=== PATIENT | female | born 1940 | race Caucasian/White ===

== ENCOUNTER 2017-08-03 21:25 | Emergency (ER) | payer MEDICARE, OTHER ==
[~2017-08-03] VITALS: Ht 154.9 cm; Wt 90.7 kg
[~2017-08-03 21:25] MED LIST: ASPI81CH PO; ASPI81EC; CETI5 PO; CITA20 PO; METO50ER PO; OMEP20ER PO; Prilosec20 MG PO; SIMV40 PO; TRIA80TC; Tylenol With C1 EACH PO
[2017-08-03] MEDS ORDERED: OXYB5 PO (21:36)
[2017-08-03] MEDS ORDERED: BUSP5 PO (21:38)
[2017-08-03] MEDS ORDERED: ESTR2 PO (21:38)
[2017-08-03 22:16] LABS: BASOPHILS ABSOLUTE AUTO 0.07 K/mm3 (0.00-0.23); BASOPHILS PERCENT AUTO 1 % (0-2); EOSINOPHILS ABSOLUTE AUTO 0.24 K/mm3 (0.00-0.68); EOSINOPHILS PERCENT AUTO 4 % (0-6); Hematocrit 40.5 % (33.0-51.0); Hemoglobin 13.4 g/dL (11.5-16.0); IMMATURE GRAN ABSOLUTE AUTO 0.04 K/mm3 (0.00-0.10); IMMATURE GRAN PERCENT AUTO 1 % (0-1); LYMPHOCYTES ABSOLUTE AUTO 2.36 K/mm3 (0.84-5.20); LYMPHOCYTES PERCENT AUTO 35 % (21-46); MONOCYTES ABSOLUTE AUTO 0.55 K/mm3 (0.16-1.47); MONOCYTES PERCENT AUTO 8 % (4-13); Mean Corpuscular HGB 31.8 pg (26.0-34.0); Mean Corpuscular HGB Conc 33.1 g/dL (31.5-36.5); Mean Corpuscular Volume 96 fL (80-100); Mean Platelet Volume 9.7 fL (9.1-12.4); NEUTROPHILS ABSOLUTE AUTO 3.44 K/mm3 (1.96-9.15); NEUTROPHILS PERCENT AUTO 51 % (41-73); Platelet Count 259 K/mm3 (150-400); RDW Coefficient Variation 12.2 % (11.7-14.2); RDW Standard Deviation 43.1 fL (35.1-46.3); Red Blood Cell Count 4.22 M/mm3 (3.80-5.20)
[2017-08-03 22:30] LABS: Alanine Aminotransfer (ALT/SGP 30 U/L (12-78); Albumin, Blood 3.5 g/dL (3.4-5.0); Albumin/Globulin Ratio 0.8 (0.8-1.8); Alk Phos 75 U/L (50-136); Anion Gap 9 mmol/L (6-16); Aspartate Aminotrans (AST/SGOT 29 U/L (12-37); Bilirubin, Total 0.2 mg/dL (0.1-1.0); Blood Urea Nitrogen 14 mg/dL (8-24); Bun/Creatinine Ratio 20.6 (12.0-20.0); CO2, Blood 28 mmol/L (21-32); Calcium, Blood 8.7 mg/dL (8.5-10.1); Chloride, Blood 102 mmol/L (98-108); Creatinine, Blood 0.68 mg/dL (0.40-1.00); Globulin, Blood 4.3 g/dL (2.2-4.0); Glomerular Filtration Rate >60 (60-); Glucose, Blood 95 mg/dL (70-99); Potassium, Blood 3.6 mmol/L (3.5-5.5); Sodium, Blood 139 mmol/L (136-145); Total Protein, Blood 7.8 g/dL (6.4-8.2); Troponin I <0.015 ng/mL (0.000-0.040)
[2018-02-17] MEDS ORDERED: WATER PILL PO (14:38)
[2018-02-17] MEDS ORDERED: CHLO25B PO (16:27)
== END 2017-08-04 02:01 | disposition home or self-care (01) ==
LOC: ER 21:25
PROVIDERS: Emergency Medicine
DX: R07.89 Other chest pain (principal); Z88.2 Allergy status to sulfonamides; Z79.899 Other long term (current) drug therapy; Z79.82 Long term (current) use of aspirin; I10 Essential (primary) hypertension; Z87.891 Personal history of nicotine dependence
CPT/HCPCS: 71046; 80053; 84484; 85025; 93005; 93010; 99284

== ENCOUNTER 2017-09-14 23:18 | Emergency (ER) | payer MEDICARE, OTHER ==
[~2017-09-14] VITALS: Ht 154.9 cm; Wt 88.0 kg
[~2017-09-14 23:18] MED LIST changes: +BUSP5 PO; +ESTR2 PO; +OXYB5 PO
[2017-09-14] MEDS ORDERED: LOSA25 PO (23:34)
[2017-09-14 23:39] LABS: BASOPHILS ABSOLUTE AUTO 0.05 K/mm3 (0.00-0.23); BASOPHILS PERCENT AUTO 1 % (0-2); EOSINOPHILS ABSOLUTE AUTO 0.17 K/mm3 (0.00-0.68); EOSINOPHILS PERCENT AUTO 2 % (0-6); Hematocrit 39.6 % (33.0-51.0); Hemoglobin 13.4 g/dL (11.5-16.0); IMMATURE GRAN ABSOLUTE AUTO 0.04 K/mm3 (0.00-0.10); IMMATURE GRAN PERCENT AUTO 1 % (0-1); LYMPHOCYTES ABSOLUTE AUTO 2.32 K/mm3 (0.84-5.20); LYMPHOCYTES PERCENT AUTO 30 % (21-46); MONOCYTES ABSOLUTE AUTO 0.58 K/mm3 (0.16-1.47); MONOCYTES PERCENT AUTO 8 % (4-13); Mean Corpuscular HGB 31.9 pg (26.0-34.0); Mean Corpuscular HGB Conc 33.8 g/dL (31.5-36.5); Mean Corpuscular Volume 94 fL (80-100); Mean Platelet Volume 9.6 fL (9.1-12.4); NEUTROPHILS ABSOLUTE AUTO 4.56 K/mm3 (1.96-9.15); NEUTROPHILS PERCENT AUTO 59 % (41-73); Platelet Count 241 K/mm3 (150-400); RDW Coefficient Variation 12.2 % (11.7-14.2); RDW Standard Deviation 42.4 fL (35.1-46.3); White Blood Cell Count 7.72 K/mm3 (4.00-11.30)
[2017-09-15] LABS: Alanine Aminotransfer (ALT/SGP 34 U/L (12-78); Albumin, Blood 3.5 g/dL (3.4-5.0); Albumin/Globulin Ratio 0.9 (0.8-1.8); Alk Phos 80 U/L (50-136); Anion Gap 7 mmol/L (6-16); Aspartate Aminotrans (AST/SGOT 37 U/L (12-37); Bilirubin, Total 0.3 mg/dL (0.1-1.0); Blood Urea Nitrogen 17 mg/dL (8-24); Bun/Creatinine Ratio 24.2 (12.0-20.0); CO2, Blood 25 mmol/L (21-32); Chloride, Blood 105 mmol/L (98-108); Globulin, Blood 3.9 g/dL (2.2-4.0); Glomerular Filtration Rate >60 (60-); Glucose, Blood 100 mg/dL (70-99); Potassium, Blood 3.7 mmol/L (3.5-5.5); Sodium, Blood 137 mmol/L (136-145); Total Protein, Blood 7.4 g/dL (6.4-8.2); Troponin I <0.015 ng/mL (0.000-0.040)
[2018-02-17] MEDS ORDERED: WATER PILL PO (14:38)
[2018-02-17] MEDS ORDERED: CHLO25B PO (16:27)
== END 2017-09-15 00:15 | disposition home or self-care (01) ==
LOC: ER 23:18
PROVIDERS: Emergency Medicine
DX: R07.9 Chest pain, unspecified (principal); Z88.2 Allergy status to sulfonamides; Z79.899 Other long term (current) drug therapy; Z79.82 Long term (current) use of aspirin; I10 Essential (primary) hypertension; Z87.891 Personal history of nicotine dependence
CPT/HCPCS: 80053; 83690; 83880; 84484; 85025; 93005; 93010; 99283

== ENCOUNTER 2018-01-17 19:35 | Emergency (ER) | payer MEDICARE, OTHER ==
[~2018-01-17] VITALS: Ht 157.5 cm; Wt 88.5 kg
[~2018-01-17 19:35] MED LIST changes: +LOSA25 PO
[2018-01-17] MEDS ORDERED: HYDR1TAB94 PO (19:50)
== END 2018-01-17 23:54 | disposition left against medical advice (07) ==
LOC: ER 19:35
DX: Z53.21 Procedure and treatment not carried out due to patient leaving prior to being seen by health care provider (principal)

== ENCOUNTER → 2018-01-28 | Outpatient (CLI) | payer MEDICARE, OTHER ==
[~2018-01-28] MED LIST changes: +HYDR1TAB94 PO
[2018-01-28 13:31] LABS: BASOPHILS ABSOLUTE AUTO 0.03 K/mm3 (0.00-0.23); BASOPHILS PERCENT AUTO 1 % (0-2); EOSINOPHILS ABSOLUTE AUTO 0.11 K/mm3 (0.00-0.68); EOSINOPHILS PERCENT AUTO 2 % (0-6); Hematocrit 35.7 % (33.0-51.0); Hemoglobin 11.9 g/dL (11.5-16.0); IMMATURE GRAN ABSOLUTE AUTO 0.02 K/mm3 (0.00-0.10); IMMATURE GRAN PERCENT AUTO 0 % (0-1); LYMPHOCYTES ABSOLUTE AUTO 1.23 K/mm3 (0.84-5.20); LYMPHOCYTES PERCENT AUTO 23 % (21-46); MONOCYTES PERCENT AUTO 8 % (4-13); Mean Corpuscular HGB 32.5 pg (26.0-34.0); Mean Corpuscular HGB Conc 33.3 g/dL (31.5-36.5); Mean Corpuscular Volume 98 fL (80-100); Mean Platelet Volume 9.6 fL (9.1-12.4); NEUTROPHILS ABSOLUTE AUTO 3.48 K/mm3 (1.96-9.15); NEUTROPHILS PERCENT AUTO 66 % (41-73); Platelet Count 301 K/mm3 (150-400); RDW Coefficient Variation 12.4 % (11.7-14.2); RDW Standard Deviation 44.8 fL (35.1-46.3); Red Blood Cell Count 3.66 M/mm3 (3.80-5.20); White Blood Cell Count 5.27 K/mm3 (4.00-11.30)
[2018-01-28 13:48] LABS: Alanine Aminotransfer (ALT/SGP 24 U/L (12-78); Albumin, Blood 3.5 g/dL (3.4-5.0); Albumin/Globulin Ratio 0.9 (0.8-1.8); Alk Phos 82 U/L (50-136); Anion Gap 6 mmol/L (6-16); Aspartate Aminotrans (AST/SGOT 22 U/L (12-37); Bilirubin, Total 0.3 mg/dL (0.1-1.0); Blood Urea Nitrogen 10 mg/dL (8-24); Bun/Creatinine Ratio 17.7 (12.0-20.0); CO2, Blood 29 mmol/L (21-32); Chloride, Blood 107 mmol/L (98-108); Creatinine, Blood 0.56 mg/dL (0.40-1.00); Globulin, Blood 3.8 g/dL (2.2-4.0); Glomerular Filtration Rate >60 (60-); Glucose, Blood 96 mg/dL (70-99); Sodium, Blood 142 mmol/L (136-145); Total Protein, Blood 7.3 g/dL (6.4-8.2)
== END ==
LOC: LAB 12:30 → LAB SHORT 12:30
PROVIDERS: Family Medicine
DX: R60.9 Edema, unspecified (principal)
CPT/HCPCS: 80053; 83880; 85025

== ENCOUNTER 2018-03-02 15:44 | Inpatient (IN) | payer MEDICARE, OTHER ==
[~2018-03-02] VITALS: Ht 154.9 cm; Wt 90.7 kg
[~2018-03-02 15:44] MED LIST changes: +CHLO25B PO; +WATER PILL PO
[2018-03-08 05:31] LABS: BASOPHILS PERCENT AUTO 0 % (0-2); EOSINOPHILS PERCENT AUTO 0 % (0-6); Hematocrit 34.9 % (33.0-51.0); IMMATURE GRAN ABSOLUTE AUTO 0.04 K/mm3 (0.00-0.10); IMMATURE GRAN PERCENT AUTO 0 % (0-1); LYMPHOCYTES ABSOLUTE AUTO 0.88 K/mm3 (0.84-5.20); LYMPHOCYTES PERCENT AUTO 8 % (21-46); MONOCYTES ABSOLUTE AUTO 0.45 K/mm3 (0.16-1.47); MONOCYTES PERCENT AUTO 4 % (4-13); Mean Corpuscular HGB 31.8 pg (26.0-34.0); Mean Corpuscular HGB Conc 34.4 g/dL (31.5-36.5); Mean Corpuscular Volume 93 fL (80-100); Mean Platelet Volume 9.6 fL (9.1-12.4); NEUTROPHILS ABSOLUTE AUTO 9.82 K/mm3 (1.96-9.15); NEUTROPHILS PERCENT AUTO 88 % (41-73); Platelet Count 272 K/mm3 (150-400); RDW Coefficient Variation 11.9 % (11.7-14.2); RDW Standard Deviation 40.6 fL (35.1-46.3); Red Blood Cell Count 3.77 M/mm3 (3.80-5.20); White Blood Cell Count 11.19 K/mm3 (4.00-11.30)
[2018-03-08 05:59] LABS: Anion Gap 9 mmol/L (6-16); Blood Urea Nitrogen 12 mg/dL (8-24); Bun/Creatinine Ratio 16.9 (12.0-20.0); CO2, Blood 28 mmol/L (21-32); Calcium, Blood 8.8 mg/dL (8.5-10.1); Chloride, Blood 99 mmol/L (98-108); Creatinine, Blood 0.71 mg/dL (0.40-1.00); Glomerular Filtration Rate >60 (60-); Glucose, Blood 118 mg/dL (70-99); Potassium, Blood 3.4 mmol/L (3.5-5.5); Sodium, Blood 136 mmol/L (136-145)
[2018-03-09] MEDS ORDERED: ONDA4 PO (14:24)
[2018-03-09] MEDS ORDERED: OXYC5 PO (15:03)
== END 2018-03-09 16:46 | disposition home or self-care (01) | DRG 470 ==
LOC: SURS 03-07 09:42 → PRE IP 03-07 13:30 → SURS 03-07 16:02
PROVIDERS: Orthopaedic Surgery
PROC: 0SRC0J9 Replacement of Right Knee Joint with Synthetic Substitute, Cemented, Open Approach (ICD-10-PCS; principal; 2018-03-07 13:30)
DX: M17.11 Unilateral primary osteoarthritis, right knee (principal); I10 Essential (primary) hypertension; K21.9 Gastro-esophageal reflux disease without esophagitis; Z88.2 Allergy status to sulfonamides; Z79.82 Long term (current) use of aspirin; Z79.899 Other long term (current) drug therapy
CPT/HCPCS: 36415; 73560-RT; 80048; 83735; 85025; 88300; 97110; 97116; 97161; 97530; C1713; C1776; G8978; G8979; G8980; J0171; J0690; J0735; J1100; J1885; J2060; J2250; J2370; J2405; J2765; J2795; J3010; J7120

== ENCOUNTER 2018-03-14 20:20 | Inpatient (IN) | payer MEDICARE, OTHER ==
[~2018-03-14] VITALS: Ht 157.5 cm; Wt 88.0 kg
[~2018-03-14 20:20] MED LIST changes: +ONDA4 PO; +OXYC5 PO
[2018-03-14 20:56] LABS: BASOPHILS ABSOLUTE AUTO 0.03 K/mm3 (0.00-0.23); BASOPHILS PERCENT AUTO 0 % (0-2); EOSINOPHILS ABSOLUTE AUTO 0.17 K/mm3 (0.00-0.68); EOSINOPHILS PERCENT AUTO 2 % (0-6); Hematocrit 33.2 % (33.0-51.0); Hemoglobin 11.4 g/dL (11.5-16.0); IMMATURE GRAN ABSOLUTE AUTO 0.08 K/mm3 (0.00-0.10); IMMATURE GRAN PERCENT AUTO 1 % (0-1); LYMPHOCYTES ABSOLUTE AUTO 1.66 K/mm3 (0.84-5.20); LYMPHOCYTES PERCENT AUTO 20 % (21-46); MONOCYTES ABSOLUTE AUTO 0.75 K/mm3 (0.16-1.47); MONOCYTES PERCENT AUTO 9 % (4-13); Mean Corpuscular HGB 32.3 pg (26.0-34.0); Mean Corpuscular HGB Conc 34.3 g/dL (31.5-36.5); Mean Corpuscular Volume 94 fL (80-100); NEUTROPHILS PERCENT AUTO 68 % (41-73); Platelet Count 307 K/mm3 (150-400); RDW Coefficient Variation 12.2 % (11.7-14.2); Red Blood Cell Count 3.53 M/mm3 (3.80-5.20); White Blood Cell Count 8.29 K/mm3 (4.00-11.30)
[2018-03-14 21:14] LABS: Alanine Aminotransfer (ALT/SGP 32 U/L (12-78); Albumin, Blood 2.9 g/dL (3.4-5.0); Albumin/Globulin Ratio 0.7 (0.8-1.8); Alk Phos 67 U/L (50-136); Anion Gap 11 mmol/L (6-16); Aspartate Aminotrans (AST/SGOT 34 U/L (12-37); Bilirubin, Total 0.5 mg/dL (0.1-1.0); Blood Urea Nitrogen 11 mg/dL (8-24); Bun/Creatinine Ratio 18.1 (12.0-20.0); CO2, Blood 29 mmol/L (21-32); Calcium, Blood 8.8 mg/dL (8.5-10.1); Chloride, Blood 97 mmol/L (98-108); Creatinine, Blood 0.61 mg/dL (0.40-1.00); Globulin, Blood 3.9 g/dL (2.2-4.0); Glomerular Filtration Rate >60 (60-); Glucose, Blood 98 mg/dL (70-99); Potassium, Blood 2.8 mmol/L (3.5-5.5); Sodium, Blood 137 mmol/L (136-145); Total Protein, Blood 6.8 g/dL (6.4-8.2)
[2018-03-14 22:25] LABS: CPK Creatine Kinase 91 U/L (26-193)
[2018-03-15] MEDS ORDERED: ASPI325 PO (00:48)
[2018-03-15 04:01] LABS: Source, Urine Clean Catch
[2018-03-15 04:04] LABS: Bilirubin, Urine Neg (Neg); Blood, Urine Neg (Neg); Glucose Qualitative, Urine Neg (Neg); Ketones, Urine 2+ (Neg); Leukocyte Esterase, Urine Neg (Neg); Nitrite, Urine Neg (Neg); Protein, Urine Neg (Neg); Urobilinogen, Urine 1+ (Normal)
[2018-03-15 04:08] LABS: Appearance, Urine Clear (Clear); Color, Urine Yellow (P-Yellow)
[2018-03-15 05:44] LABS: Anion Gap 9 mmol/L (6-16); Blood Urea Nitrogen 9 mg/dL (8-24); Bun/Creatinine Ratio 16.5 (12.0-20.0); CO2, Blood 26 mmol/L (21-32); Calcium, Blood 8.2 mg/dL (8.5-10.1); Chloride, Blood 105 mmol/L (98-108); Creatinine, Blood 0.55 mg/dL (0.40-1.00); Glomerular Filtration Rate >60 (60-); Glucose, Blood 92 mg/dL (70-99); Magnesium, Blood 1.7 mg/dL (1.6-2.4); Potassium, Blood 4.4 mmol/L (3.5-5.5); Sodium, Blood 140 mmol/L (136-145)
[2018-03-15 22:39] LABS: Percent Saturation 25.6 % (15.0-50.0)
[2018-03-17 05:47] LABS: Albumin, Blood 3.1 g/dL (3.4-5.0); Anion Gap 9 mmol/L (6-16); Blood Urea Nitrogen 10 mg/dL (8-24); Bun/Creatinine Ratio 16.8 (12.0-20.0); CO2, Blood 26 mmol/L (21-32); Calcium, Blood 8.9 mg/dL (8.5-10.1); Chloride, Blood 104 mmol/L (98-108); Creatinine, Blood 0.59 mg/dL (0.40-1.00); Glomerular Filtration Rate >60 (60-); Glucose, Blood 90 mg/dL (70-99); Phosphorus, Blood 2.6 mg/dL (2.5-4.9); Potassium, Blood 3.5 mmol/L (3.5-5.5); Sodium, Blood 139 mmol/L (136-145)
[2018-03-18 05:34] LABS: Anion Gap 8 mmol/L (6-16); Blood Urea Nitrogen 10 mg/dL (8-24); Bun/Creatinine Ratio 18.5 (12.0-20.0); CO2, Blood 28 mmol/L (21-32); Calcium, Blood 8.8 mg/dL (8.5-10.1); Chloride, Blood 103 mmol/L (98-108); Creatinine, Blood 0.54 mg/dL (0.40-1.00); Glomerular Filtration Rate >60 (60-); Glucose, Blood 90 mg/dL (70-99); Potassium, Blood 3.4 mmol/L (3.5-5.5); Sodium, Blood 139 mmol/L (136-145)
[2018-03-18] MEDS ORDERED: ASPI81CH PO (10:53)
[2018-03-18] MEDS ORDERED: Carbidopa-Levo1 EACH PO (10:58)
[2018-03-18] MEDS ORDERED: Colace100 MG PO (10:59)
[2018-03-18] MEDS ORDERED: XARELTO10 MG PO (11:01)
[2018-03-18] MEDS ORDERED: TRAM50 PO (11:02)
== END 2018-03-18 13:54 | disposition home health service (06) | DRG 392 ==
LOC: ER 20:20 → MEDS 20:21 → EDPENDDIS 03-18 07:12 → ENPENDDIS 03-18 07:12 → MEDS 03-18 13:54
PROVIDERS: Emergency Medicine; Hospitalist; Internal Medicine
DX: R11.2 Nausea with vomiting, unspecified (principal); I82.441 Acute embolism and thrombosis of right tibial vein; E87.6 Hypokalemia; G20 Parkinson's disease; Z96.651 Presence of right artificial knee joint; I10 Essential (primary) hypertension; E86.0 Dehydration; Z66 Do not resuscitate; G25.81 Restless legs syndrome; Z88.5 Allergy status to narcotic agent; Z88.2 Allergy status to sulfonamides; Z79.82 Long term (current) use of aspirin; Z79.899 Other long term (current) drug therapy; Z87.891 Personal history of nicotine dependence
CPT/HCPCS: 36415; 71046; 73562-RT; 80048; 80053; 80069; 81003; 82550; 82728; 83540; 83550; 83690; 83735; 85025; 90686; 93971; 96361; 96365; 96366; 96372; 96374; 96375; 96376; 97110; 97116; 97162; 97530; 99284-25; G0378; G8978; G8979; G8980; J1650; J1885; J2060; J2405; J3010; J3480; J7030

== ENCOUNTER 2018-10-04 15:26 | Inpatient (IN) | payer MEDICARE, OTHER ==
[~2018-10-04] VITALS: Ht 157.5 cm; Wt 93.5 kg
[~2018-10-04 15:26] MED LIST changes: +ASPI325 PO; +Aspirin EC81 MG PO; +Carbidopa-Levo1 EACH PO; +Colace100 MG PO; +METO50 PO; +TRAM50 PO; +XARELTO10 MG PO
[2018-10-04 16:05] LABS: BASOPHILS ABSOLUTE AUTO 0.02 K/mm3 (0.00-0.23); BASOPHILS PERCENT AUTO 0 % (0-2); EOSINOPHILS PERCENT AUTO 0 % (0-6); Hematocrit 44.9 % (33.0-51.0); Hemoglobin 14.8 g/dL (11.5-16.0); IMMATURE GRAN ABSOLUTE AUTO 0.08 K/mm3 (0.00-0.10); IMMATURE GRAN PERCENT AUTO 1 % (0-1); LYMPHOCYTES ABSOLUTE AUTO 1.53 K/mm3 (0.84-5.20); LYMPHOCYTES PERCENT AUTO 18 % (21-46); MONOCYTES ABSOLUTE AUTO 0.49 K/mm3 (0.16-1.47); MONOCYTES PERCENT AUTO 6 % (4-13); Mean Corpuscular HGB 32.2 pg (26.0-34.0); Mean Corpuscular Volume 98 fL (80-100); Mean Platelet Volume 9.8 fL (9.1-12.4); NEUTROPHILS PERCENT AUTO 76 % (41-73); Platelet Count 305 K/mm3 (150-400); RDW Coefficient Variation 13.1 % (11.7-14.2); RDW Standard Deviation 46.6 fL (35.1-46.3); Red Blood Cell Count 4.59 M/mm3 (3.80-5.20); White Blood Cell Count 8.62 K/mm3 (4.00-11.30)
[2018-10-04 16:31] LABS: Alanine Aminotransfer (ALT/SGP 26 U/L (12-78); Albumin, Blood 3.3 g/dL (3.4-5.0); Albumin/Globulin Ratio 0.7 (0.8-1.8); Alk Phos 122 U/L (50-136); Anion Gap 6 mmol/L (6-16); Aspartate Aminotrans (AST/SGOT 39 U/L (12-37); Bilirubin, Total 0.3 mg/dL (0.1-1.0); Blood Urea Nitrogen 17 mg/dL (8-24); Bun/Creatinine Ratio 34.5 (12.0-20.0); CO2, Blood 31 mmol/L (21-32); Calcium, Blood 9.2 mg/dL (8.5-10.1); Chloride, Blood 102 mmol/L (98-108); Creatinine, Blood 0.49 mg/dL (0.40-1.00); Glomerular Filtration Rate >60 (60-); Glucose, Blood 134 mg/dL (70-99); Potassium, Blood 4.3 mmol/L (3.5-5.5); Sodium, Blood 139 mmol/L (136-145); Total Protein, Blood 8.3 g/dL (6.4-8.2)
[2018-10-04 16:42] LABS: Troponin I 0.821 ng/mL (0.000-0.040)
[2018-10-04] MEDS ORDERED: LOSA50 PO (16:46)
[2018-10-04] MEDS ORDERED: VENL150ER PO (16:50)
[2018-10-04] MEDS ORDERED: MIRT15 PO (16:50)
[2018-10-04] MEDS ORDERED: PREDNISOLONE ACE5 ML RIGHTEYE (16:53)
--- NOTE | 2018-10-04 20:30 | NUR ---
REPORT RECEIVED FROM NOELLE MOELLER, BUSINESS DEVELOPMENT ENGINEER AND PT T/F TO ROOM 302 AT 1945. PT ORIENTED TO ROOM AND CALL SYSTEM. SHE'S A/OX4, DENIED ALL S/S CARDIAC DISTRESS AND STATED SHE'D BEEN ASYMPTOMATIC SINCE NOON WHEN INITIAL SYMPTOMS OCCURED. FAMILY PRESENT IN ROOM AND RN EXPLAINED PLAN FOR EVENING, LABS TO BE DRAWN AND AM STUDIES. SCHEDULED HS MEDS RECIEVED AND ADMISSION PAPERWORK BEING COMPLETED. PT IS AMBULATORY AND MADE SBA D/T POSSIBLE FALL RISK IF SHE BECOMES SYMPTOMATIC AGAIN. LS SLIGHTLY COARSE AND DIM IN BASES SO PT ENCOURAGED TO DEEP BREATH AND COUGH. RESPS E/U ON RA AND SPO2 WNL. SHE DENIES NEEDS AND T/F VITALS STABLE. WILL CONT TO MONITOR AND REPORT TO MD SEGURA.
[2018-10-04] MEDS ORDERED: CYAN500 PO (20:36)
[2018-10-04] MEDS ORDERED: FOLIC ACID PO (20:37)
--- NOTE | 2018-10-05 01:18 | NUR ---
TROPONIN CRITICAL, NOW 1.35 AND WAS 0.821. MADE AWARE AND HE PLANS TO COMMENCE HEPARIN GTT. PT ASYMPTOMATIC OF CARDIAC DISTRESS, DENIES CP THIS SHIFT AND HAS BEEN AMBULATORY W/SBA AND NO SOB NOTED. SHE IS SLEEPING COMFORTABLY AT THIS TIME BUT AWOKE TO DENY COMPLAINTS/CONCERNS.
[2018-10-05 02:07] LABS: BASOPHILS ABSOLUTE AUTO 0.01 K/mm3 (0.00-0.23); BASOPHILS PERCENT AUTO 0 % (0-2); EOSINOPHILS PERCENT AUTO 0 % (0-6); Hematocrit 42.5 % (33.0-51.0); IMMATURE GRAN ABSOLUTE AUTO 0.04 K/mm3 (0.00-0.10); IMMATURE GRAN PERCENT AUTO 1 % (0-1); LYMPHOCYTES ABSOLUTE AUTO 1.66 K/mm3 (0.84-5.20); LYMPHOCYTES PERCENT AUTO 20 % (21-46); MONOCYTES ABSOLUTE AUTO 0.58 K/mm3 (0.16-1.47); MONOCYTES PERCENT AUTO 7 % (4-13); Mean Corpuscular HGB 31.6 pg (26.0-34.0); Mean Corpuscular HGB Conc 32.9 g/dL (31.5-36.5); Mean Corpuscular Volume 96 fL (80-100); Mean Platelet Volume 9.4 fL (9.1-12.4); NEUTROPHILS ABSOLUTE AUTO 6.18 K/mm3 (1.96-9.15); NEUTROPHILS PERCENT AUTO 73 % (41-73); Platelet Count 313 K/mm3 (150-400); RDW Standard Deviation 45.9 fL (35.1-46.3); Red Blood Cell Count 4.43 M/mm3 (3.80-5.20); White Blood Cell Count 8.47 K/mm3 (4.00-11.30)
[2018-10-05 02:11] LABS: International Normalized Ratio 0.94
--- NOTE | 2018-10-05 02:38 | NUR ---
HEPARIN MANAGED PER PHARMACY. NEW HEPARIN INFUSION COMMENCED AT 0226, RATE 13 UN/KG/HR (17.4 ML/HR). PTT WAS 27.9 AND NO BOLUS WAS REQUIRED. CHECKED W/2ND RN, ANTWAN CONTRERAS. PT CONT'S TO DENY ALL S/S CARDIAC DISTRESS.
--- NOTE | 2018-10-05 06:14 | NUR ---
RT'S RESPONDED TO CODE BLUE THEN RAPID RESPONSE CALLED OVERHEAD, PT WAS 92% ON RA. RR 20. NO RESP DISTRESS. RT'S ASSISTED WITH GETTING PT FROM COMMODE TO BED, THEN EXCUSED. RN TO CALL IF RT NEEDED.
--- NOTE | 2018-10-05 06:25 | NUR ---
CRA OFFICER NOTE: PT CALLED FOR ASSISTANCE STATING SHE WASN'T FEELING WELL @ 0553. RN ARRIVED TO FIND PT SITTING ON BSC USING IT A CHAIR W/TRASH CAN IN FRONT OF HER. SHE C/O NUMBNESS AND TINGLING OF HER JAW AND FACE. SHE APPEARED DIAPHORETIC, PALE AND BECAME NAUSEOUS W/O EMESIS. PCU FABRICATION MANAGER CONTACTED AND RATE/RHYTHM WAS UNCHANGED: NSR W/BBB AT 70'S BPM. RN REMAINED W/PT AND ALERTED EXECUTIVE CASINO HOST TO CALL CRA OFFICER D/T PT THEN BECOMING SUDDENLY WEAK AND REPORTING SHE FELT LIKE SHE WAS "GOING TO PASS OUT". SHE BECAME NONRESPONSIVE WHILE SITTING UP FOR APPROX 30 SECS W/A BLANK STARE AND STERNAL RUB WAS INEFFECTIVE AT ROUSING. SHE DIDN'T APPEAR TO LOSE CONCIOUSNESS BUT APPEARED TO HAVE AN APNEIC PAUSE FOR APPROX APPROX 10 SECS. RADIAL PULSES BECAME WEAK AND THREADY AND PT FELT COLD TO TOUCH DESPITE PREVIOUSLY REPORTING FEELING LIKE SHE WAS "BURNING UP". CRA OFFICER ARRIVED AT 0555. BP 87/47, HR 73, 95% ON RA. PT TALKING W/STAFF AND DENIES CP. NTG PASTE/PATCH REMOVED. HERE AND INSTRUCTED TO COMMENCE 1L NS BOLUS. VITALS RECHECKED AT 0558: BP 120/68, HR 85, 95% ON RA. PT REPORTS NAUSEA IMPROVED AND WAS ASSISTED BACK TO BED. RX'D EKG WHICH CONFIRMED NSR W/BBB, HR 70'S. VITALS AT 0600: 127/69, HR 73 AND 94% ON RA W/ORAL TEMP OF 97.5. PT INTERACTING W/STAFF AND REPORTS NECK PAIN BUT DENIES ANY FURTHER NUMBNESS/ TINGLING OR NAUSEA. MD GAVE VERBAL RX TO STOP BOLUS AFTER 500MLS IF BP REMAINS STABLE AND TRANSFER PCU STATUS. ALL PREVIOUSLY RX'D AM LABS AND NEXT SCHEDULED TROPONIN STAT DRAWN AT THIS TIME. CBG AT 0607 WAS 171. PT WAS MOVED TO ICU 13 PCU STATUS AT 0620 AND REPORT PROVIDED TO DEBBI FIERRO, ALARM SIGNAL OPERATOR.
[2018-10-05 06:50] LABS: Alanine Aminotransfer (ALT/SGP 19 U/L (12-78); Albumin/Globulin Ratio 0.7 (0.8-1.8); Alk Phos 117 U/L (50-136); Anion Gap 8 mmol/L (6-16); Aspartate Aminotrans (AST/SGOT 28 U/L (12-37); Bilirubin, Total 0.3 mg/dL (0.1-1.0); Blood Urea Nitrogen 17 mg/dL (8-24); Bun/Creatinine Ratio 25.6 (12.0-20.0); CHOL/HDL RATIO 3.9; CO2, Blood 27 mmol/L (21-32); Calcium, Blood 8.9 mg/dL (8.5-10.1); Chloride, Blood 106 mmol/L (98-108); Cholesterol 270 mg/dL (50-200); Creatinine, Blood 0.67 mg/dL (0.40-1.00); Globulin, Blood 4.3 g/dL (2.2-4.0); Glomerular Filtration Rate >60 (60-); Glucose, Blood 154 mg/dL (70-99); HDL Cholesterol 70 mg/dL (>39); LDL/HDL RATIO 2.6; Low Density Lipoprotein Chol 184 mg/dL (0-110); Magnesium, Blood 2.2 mg/dL (1.6-2.4); Potassium, Blood 3.6 mmol/L (3.5-5.5); Sodium, Blood 141 mmol/L (136-145); Total Protein, Blood 7.3 g/dL (6.4-8.2); Triglycerides 79 mg/dL (30-160); Very Low Density Lipoprot Chol 15 mg/dL (6-32)
--- NOTE | 2018-10-05 07:15 | NUR ---
ARRIVAL TO ICU / REPORT TO DAY SHIFT RN REPORT RECEIVED FROM TERESA MCDANIEL RN. PT ARRIVED TO ICU APPROX 0625. PT ALERT, ORIENTED. VITALS STABLE. SEE ADMISSION RHYTHM STRIP. REPORT TO JOSHUA SAMSON RN TO ASSUME CARE AT THIS TIME.
--- NOTE | 2018-10-05 08:34 | NUR ---
SUMMARY: ORTHOPEDICS PEDIATRIC PHYSICIAN WAS CALLED THIS SHIFT AT 0555. SEE PREVIOUS ORTHOPEDICS PEDIATRIC PHYSICIAN NOTE FOR DETAILS ON INTERVENTIONS AND SYMPTOMATIC PRESENTATION. PRIOR TO EVENT PT HAD BEEN ASYMPTOMATIC OF CARDIAC DISTRESS: DENYING CP, PAIN, NAUSEA, NUMB/TINGLING AND SOB. VITALS HAD BEEN STABLE. HER 2ND TROPONIN WAS ELEVATED AND CRITICAL: 1.35 SO MD WAS NOTIFIED W/HEPARIN GTT COMMENCED PER PHARMACY MANAGEMENT. RATE WAS 13 UN/KG/HR (14.7 ML/HR), NO BOLUS WAS REQUIRED. SHE'D RECIEVED SCHEDULED MEDS PER EMAR AT START OF SHIFT W/METOPROLOL, COZAAR AND LOVENOX RECIEVED. NTG PASTE APPLIED DESPITE DENYING CP PER ORDERS. TELEMETRY WAS PLACED AND SHE WAS NSR W/BBB AT 70'S BPM. PT HAD BEEN BEEN A/OX4, CALLED APPROPRIATELY FOR SBA TO BSC AND HAD STRENGTH WNL. AFTER ORTHOPEDICS PEDIATRIC PHYSICIAN PT WAS TRANSFERRED TO ICU 13 PCU STATUS W/FAMILY NOTIFIED. CODE STATUS WAS CHANGED TO DNR THIS SHIFT PER PT INSTRUCTIONS.
--- NOTE | 2018-10-05 08:53 | NUR ---
BEGINNING OF SHIFT Assumed care of pt at 0700. Report recieved from Michela SALTER. Pt on room air. Denies chest pain. Nitro paste not present on patient during shift assessment. Spoke to Dr Vargas regarding orders for nitro paste and current blood pressures. Verbal order given to discontinue nitro paste. Cardiology consult notified to Dr Samayoa. Notified provider that pt is NPO. Provider requested that echocardiogram is completed as soon as possible. technician support association notified. Tech in room at this time. Bed in lowest position. Call light in reach. Pt denies need at this time.
--- NOTE | 2018-10-05 12:28 | NUR ---
Echocardiogram using 0.50ml of Definity contrast performed.
[2018-10-05 16:42] LABS: Hematocrit 40.5 % (33.0-51.0); Hemoglobin 13.1 g/dL (11.5-16.0)
--- NOTE | 2018-10-05 17:39 | NUR ---
TRANSFER PT ARRIVAL TO PCU VIA W/C. PT ABLE TO STAND WITH SBA TO SIT IN CHAIR TO FINISH EATING DINNER--CLEAR LIQ DIET. VITAL SIGNS STABLE. S/P ANGIOGRAM WITH STENT PLACEMENT TODAY. R RADIAL WRIST SITE WITH T BAND IS WNL. CAP REFILL WNL AND PT ABLE TO WIGGLE FINGERS. PT DENIES N/T. TELE IN PLACE. PROTONIX GTT INFUSING PER ORDERS. PT ORIENTED TO ROOM AND CALL LIGHT. WILL CONT TO MONITOR.
--- NOTE | 2018-10-05 18:27 | NUR ---
SHIFT SUMMARY Pt NPO for breakfast and lunch until marble carver could visit patient and state plan. Dr Samayoa in to see pt after lunch time and stated plan for angiogram. Pt returned from laboratory monitor around 1600. Per laboratory monitor RN, Hemostasis was at 1545. Pt had right TR site with TR band in place. 10 mL of air in band upon arrival from laboratory monitor. 1 mL of air removed from band at bedside by laboratory monitor RN at bedside. Afterwards, color/sensation/capillary refill/distal pulses equal BUE. Small amount of dried red drainage noted around site. VSS. Within 15 minutes of arrival from laboratory monitor, pt reported nausea and then had about 200 mL of coffee ground emesis. This RN promptly notified Dr Vargas. Azalia SN administered zofran. Zofran effectively resolved nauses. Dr Vargas ordered GI consultation and protonix drip. Dr Guzman notified. Provider saw pt before she transferred to PCU 6. This RN discussed plan of care with Dr Guzman, notifying him that pt had stent. Pt okay to have anticoagulant meds prescribed by cardiology per Dr Guzman. Telephone report given to PCU nurse Kate SALTER. Pt transferred to room PCU 6 via wheelchair, accompanied by this RN and family. No changes to TR site. Pt tolerated transfer well. Meds, chart, and belongings transferred with patient.
--- NOTE | 2018-10-05 19:50 | NUR ---
ASSUMED CARE PT RESTING IN ROOM COMFORTABLY IN CHAIR. PER DAY SHIFT PT IS A S/P ANGIO RECOVERY. PT HAS TR BAND TO R RADIAL WRIST. SITE INSPECTED W/ DAY SHIFT RN. SOME BLOOD NOTED TO SITE, PER DAY SHIFT THERE WAS MORE BLOOD THAN WHEN SITE WAS LAST INSPECTED. 2ML OF AIR REINSERTED INTO TR BAND TO STOP OOZING. SOME BRUISING NOTED ABOVE TR BAND. PT REPORTS SOME TENDERNESS. NO HEMATOMAS NOTED, THOUGH SURROUNDING TISSUES TO TR BAND ARE FIRM. CAP REFIL TO FINGERS <3 SEC, PT REPORTS GOOD FEELING TO HAND AND FINGERS. WILL CONT TO MONITOR SITE BEFORE CONTINUING TO DEFLATE TR BAND. RESP EVEN UNLABORED ON RA W/ SATS >92%. PT DENIES OTHER NEEDS. PER DAY SHIFT PT IS FORGETFUL AT TIMES, W/ A HX OF DEMENTIA. BED ALARM WILL BE ACTIVATED WHEN PT MOVES TO BED, CAHRI ALARM CURRENTLY ON WHILE PT IN CHAIR. CALL LIGHT IS WITHIN REACH.
[2018-10-05 22:46] LABS: Hematocrit 39.6 % (33.0-51.0); Hemoglobin 12.7 g/dL (11.5-16.0)
[2018-10-06 05:16] LABS: BASOPHILS ABSOLUTE AUTO 0.02 K/mm3 (0.00-0.23); BASOPHILS PERCENT AUTO 0 % (0-2); EOSINOPHILS PERCENT AUTO 0 % (0-6); Hematocrit 39.9 % (33.0-51.0); Hemoglobin 12.8 g/dL (11.5-16.0); IMMATURE GRAN ABSOLUTE AUTO 0.05 K/mm3 (0.00-0.10); IMMATURE GRAN PERCENT AUTO 1 % (0-1); LYMPHOCYTES ABSOLUTE AUTO 1.54 K/mm3 (0.84-5.20); LYMPHOCYTES PERCENT AUTO 24 % (21-46); MONOCYTES ABSOLUTE AUTO 0.59 K/mm3 (0.16-1.47); MONOCYTES PERCENT AUTO 9 % (4-13); Mean Corpuscular HGB 31.1 pg (26.0-34.0); Mean Corpuscular HGB Conc 32.1 g/dL (31.5-36.5); Mean Corpuscular Volume 97 fL (80-100); Mean Platelet Volume 9.7 fL (9.1-12.4); NEUTROPHILS ABSOLUTE AUTO 4.25 K/mm3 (1.96-9.15); NEUTROPHILS PERCENT AUTO 66 % (41-73); Platelet Count 278 K/mm3 (150-400); RDW Coefficient Variation 13.3 % (11.7-14.2); Red Blood Cell Count 4.12 M/mm3 (3.80-5.20); White Blood Cell Count 6.45 K/mm3 (4.00-11.30)
[2018-10-06 05:47] LABS: Alanine Aminotransfer (ALT/SGP 19 U/L (12-78); Albumin, Blood 2.8 g/dL (3.4-5.0); Albumin/Globulin Ratio 0.7 (0.8-1.8); Alk Phos 99 U/L (50-136); Anion Gap 6 mmol/L (6-16); Aspartate Aminotrans (AST/SGOT 26 U/L (12-37); Bilirubin, Total 0.4 mg/dL (0.1-1.0); Blood Urea Nitrogen 12 mg/dL (8-24); Bun/Creatinine Ratio 19.4 (12.0-20.0); CHOL/HDL RATIO 3.5; CO2, Blood 29 mmol/L (21-32); Calcium, Blood 8.4 mg/dL (8.5-10.1); Chloride, Blood 108 mmol/L (98-108); Cholesterol 219 mg/dL (50-200); Creatinine, Blood 0.62 mg/dL (0.40-1.00); Globulin, Blood 3.8 g/dL (2.2-4.0); Glomerular Filtration Rate >60 (60-); Glucose, Blood 100 mg/dL (70-99); HDL Cholesterol 62 mg/dL (>39); LDL/HDL RATIO 2.2; Low Density Lipoprotein Chol 136 mg/dL (0-110); Potassium, Blood 3.5 mmol/L (3.5-5.5); Sodium, Blood 143 mmol/L (136-145); Total Protein, Blood 6.6 g/dL (6.4-8.2); Triglycerides 106 mg/dL (30-160); Very Low Density Lipoprot Chol 21 mg/dL (6-32)
--- NOTE | 2018-10-06 05:52 | NUR ---
SHIFT SUMMARY PT SLEEPING COMFORTABLY AT THIS TIME. NO ACUTE CHANGES IN STATUS T/O NIGHT. TR BAND TO R RADIAL WRIST HAD SOME OOZING OF BLOOD EARLY IN SHIFT, SEE PREVIOUS NOTE. TR BAND WAS FULLY DEFLATED OVERNIGHT W/O ANY FURTHER INCIDENT. BAND REMOVED AND TEGADERM IN PLACE. NO HEMATOMAS NOTED TO SITE, BRUISING AND DRIED BLOOD NOTED FROM PREVIOUS BLEEDING. PULSE STRONG, AND CAP REFIL <3 SEC. PT REPORTS SORENESS TO AREA BUT DENIES PAIN. RESP EVEN UNLABORED ON RA W/ SATS >92%. DENIES CP OR SOB. PT IS ABLE TO STAND AND AMBULATE TO RR W/ SBA. PT NEEDS TO BE REMINDED NOT TO USE RIGHT HAND, OCCASIONALLY FORGETFUL. CALL LIGHT IS IN REACH AND BED ALARM IS ON D/T FORGETFULLNESS.
[2018-10-06 05:59] LABS: Troponin I 0.885 ng/mL (0.000-0.040)
--- NOTE | 2018-10-06 09:36 | NUR ---
SHIFT SUMMARY ASSUMED CARE OF PT APPROX. 0700. PT ALERT AND OREINTED TO SELF, PLACE, TIME, AND SITUATION AND FOLLOWS DIRECTIONS. PT REPORTS SHE IS FORGETFUL AT TIMES. REINFORCED EDUCATION ON NOT USING RT WRIST. ARMBOARD IN PLACE AT THIS TIME. TEGADERM REMAINS IN PLACE. OLD DRIED DRAINAGE UNDER TEGADERM. WILL CONTINUE TO MONITOR THIS. PT ABLE TO AMBULATE TO BATHROOM NEEDED. FAMILY AT BEDSIDE THIS MORNING. ABLE TO ANSWER QUESTIONS. PT IN CHAIR AT THIS TIME. TAB ALARM IN CHAIR, CALL LIGHT IN REACH AND PT DENIES ANY NEEDS AT THIS TIME. WILL CONTINUE TO MONITOR.
[2018-10-06 10:32] LABS: Hematocrit 40.3 % (33.0-51.0); Hemoglobin 13.2 g/dL (11.5-16.0)
[2018-10-06 16:33] LABS: Hematocrit 38.8 % (33.0-51.0); Hemoglobin 12.7 g/dL (11.5-16.0)
--- NOTE | 2018-10-06 18:17 | NUR ---
SHIFT SUMMARY PT PLEASANT, COOPERATIVE AND USES CALL LIGHT APPROPRIATELY. PT REMAINS A&O X4 BUT FORGETFUL AT TIMES. ASSESSMENT FINDINGS REMAIN UNCHANGED FROM MORNING. VITLA SIGNS STABLE. ARM BOARD REMAINS IN PLACE. RT RADIAL SITE INCISION HAS TEGADERM IN PLACE. REMAINS INTACT. DRAINIAGE UNDER TEGADERM REMAINS UNCHANGED. BRUISING REMAINS UNCHANGED. NO S/SX OF SWELLING, HEMATOMA OR BLEEDING. PT ABLE TO AMBULATE TO BATHROOM NEEDED. PT UP TO CHAIR INTERMITENTLY. FAMILY AT BEDSIDE INTERMITTENTLY. QUESTIONS ANSWERED FROM FAMILY AND PT NEEDED. BED IN LOW POSITION, BED ALARM ON , CALL LIGHT IN REACH AND PT DENIES ANY NEEDS AT THIS TIME. WILL CONTINUE TO MONITOR UNTIL HANDOFF TO NIGHTSHIFT RN.
--- NOTE | 2018-10-06 19:40 | NUR ---
ASSUMED CARE PT RESTING IN ROOM COMFORTABLY. PER DAY SHIFT PT HAD NO ACUTE CHANGES IN STATUS. GI PROVIDER SAW PT TODAY, REPORTS PT CAN DC IN AM IF H/H REMAINS STABLE T/O NIGHT. RESP EVEN UNLABRED ON RA W/ SATS >92%. DENIES CP OR SOB. DENIES OTHER NEEDS. KS REPORTS FEELING TIRED AND WANTS TO GO TO BED SOON. CALL LIGHT IS IN REACH.
[2018-10-07 04:27] LABS: BASOPHILS ABSOLUTE AUTO 0.02 K/mm3 (0.00-0.23); BASOPHILS PERCENT AUTO 0 % (0-2); EOSINOPHILS PERCENT AUTO 0 % (0-6); Hematocrit 38.6 % (33.0-51.0); Hemoglobin 12.6 g/dL (11.5-16.0); IMMATURE GRAN ABSOLUTE AUTO 0.07 K/mm3 (0.00-0.10); IMMATURE GRAN PERCENT AUTO 1 % (0-1); LYMPHOCYTES ABSOLUTE AUTO 1.67 K/mm3 (0.84-5.20); LYMPHOCYTES PERCENT AUTO 24 % (21-46); MONOCYTES ABSOLUTE AUTO 0.69 K/mm3 (0.16-1.47); MONOCYTES PERCENT AUTO 10 % (4-13); Mean Corpuscular HGB 31.4 pg (26.0-34.0); Mean Corpuscular HGB Conc 32.6 g/dL (31.5-36.5); Mean Corpuscular Volume 96 fL (80-100); Mean Platelet Volume 9.5 fL (9.1-12.4); NEUTROPHILS ABSOLUTE AUTO 4.62 K/mm3 (1.96-9.15); NEUTROPHILS PERCENT AUTO 65 % (41-73); Platelet Count 273 K/mm3 (150-400); RDW Coefficient Variation 13.2 % (11.7-14.2); RDW Standard Deviation 46.9 fL (35.1-46.3); Red Blood Cell Count 4.01 M/mm3 (3.80-5.20); White Blood Cell Count 7.07 K/mm3 (4.00-11.30)
[2018-10-07 04:44] LABS: Alanine Aminotransfer (ALT/SGP 19 U/L (12-78); Albumin, Blood 2.8 g/dL (3.4-5.0); Albumin/Globulin Ratio 0.7 (0.8-1.8); Alk Phos 99 U/L (50-136); Anion Gap 8 mmol/L (6-16); Aspartate Aminotrans (AST/SGOT 23 U/L (12-37); Bilirubin, Total 0.3 mg/dL (0.1-1.0); Blood Urea Nitrogen 16 mg/dL (8-24); Bun/Creatinine Ratio 23.8 (12.0-20.0); CO2, Blood 27 mmol/L (21-32); Calcium, Blood 8.9 mg/dL (8.5-10.1); Chloride, Blood 105 mmol/L (98-108); Creatinine, Blood 0.67 mg/dL (0.40-1.00); Globulin, Blood 3.8 g/dL (2.2-4.0); Glomerular Filtration Rate >60 (60-); Glucose, Blood 108 mg/dL (70-99); Potassium, Blood 3.5 mmol/L (3.5-5.5); Sodium, Blood 140 mmol/L (136-145); Total Protein, Blood 6.6 g/dL (6.4-8.2)
--- NOTE | 2018-10-07 07:22 | NUR ---
SHIFT SUMMARY PT SLEEPING IN ROOM COMFORTABLY. NO ACUTE CHANGES T/O NIGHT. RESP EVEN UNLABORED ON RA SATS >92%. DENIES CP. ANGIO SITE WLN. BRUISING NOTED, NO HEMATOMAS. DENIES PAIN, DENIES OTHER NEEDS. CALL LIGHT IN REACH.
[2018-10-07] MEDS ORDERED: ATOR40TA PO (11:48)
[2018-10-07] MEDS ORDERED: CLOP75 PO (11:54)
[2018-10-07] MEDS ORDERED: PANT40 PO (11:55)
--- NOTE | 2018-10-07 12:40 | NUR ---
PT ALERT AND ORIENTED. FAMILY AT BEDSIDE. DISCHARGE INSTRUCTIONS PROVIDED. ALL QUESTIONS ANSWERED. IV REMOVED AND INTACT. DAY CARE WORKER REMOVED. PT TAKEN OUT BY WHEELCHAIR.
== END 2018-10-07 12:31 | disposition home or self-care (01) | DRG 246 ==
LOC: ER 15:26 → MEDS 15:27 → ICUW 10-05 06:26 → PCU 10-05 11:27 → ICUW 10-05 11:28 → PCU 10-05 17:26
PROVIDERS: Internal Medicine; Internal Medicine Gastroenterology; Physician Assistant; ADMIT Internal Medicine
PROC: B2111ZZ Fluoroscopy of Multiple Coronary Arteries using Low Osmolar Contrast (ICD-10-PCS; principal; 2018-10-05)
PROC: 027034Z Dilation of Coronary Artery, One Artery with Drug-eluting Intraluminal Device, Percutaneous Approach (ICD-10-PCS; 2018-10-05)
PROC: 4A023N7 Measurement of Cardiac Sampling and Pressure, Left Heart, Percutaneous Approach (ICD-10-PCS; 2018-10-05)
DX: I21.4 Non-ST elevation (NSTEMI) myocardial infarction (principal); K22.11 Ulcer of esophagus with bleeding; K92.0 Hematemesis; Z79.82 Long term (current) use of aspirin; F03.90 Unspecified dementia, unspecified severity, without behavioral disturbance, psychotic disturbance, mood disturbance, and anxiety; I10 Essential (primary) hypertension; Z96.651 Presence of right artificial knee joint; Z87.891 Personal history of nicotine dependence; M19.90 Unspecified osteoarthritis, unspecified site; F41.9 Anxiety disorder, unspecified; I95.9 Hypotension, unspecified; E78.5 Hyperlipidemia, unspecified; Z66 Do not resuscitate
CPT/HCPCS: 36415; 71046; 80053; 80061; 82607; 82746; 82947; 83735; 83880; 84443; 84484; 85014; 85018; 85025; 85347; 85610; 85730; 93005; 93010; 93458; 96372; 96374; 99152; 99153; 99285-25; C1725; C1769; C1874; C1894; C8929; C9113; G0378; J1644; J1650; J2250; J2405; J3010; J7030; Q9957; Q9967

== ENCOUNTER 2020-04-14 15:16 | Emergency (ER) | payer MEDICARE, OTHER ==
[~2020-04-14] VITALS: Ht 154.9 cm; Wt 94.8 kg
[~2020-04-14 15:16] MED LIST changes: +ATOR40TA PO; +CLOP75 PO; +CYAN500 PO; +FOLIC ACID PO; +LOSA50 PO; +MIRT15 PO; +PANT40 PO; +PREDNISOLONE ACE5 ML RIGHTEYE; +VENL150ER PO
== END 2020-04-14 15:52 | disposition home or self-care (01) ==
LOC: ER 15:16
DX: S80.11XA Contusion of right lower leg, initial encounter (principal); S80.12XA Contusion of left lower leg, initial encounter; I25.10 Atherosclerotic heart disease of native coronary artery without angina pectoris; I10 Essential (primary) hypertension; E78.5 Hyperlipidemia, unspecified; F03.90 Unspecified dementia, unspecified severity, without behavioral disturbance, psychotic disturbance, mood disturbance, and anxiety; Z79.02 Long term (current) use of antithrombotics/antiplatelets; Z95.5 Presence of coronary angioplasty implant and graft; V48.4XXA Person boarding or alighting a car injured in noncollision transport accident, initial encounter
CPT/HCPCS: 99283

== ENCOUNTER → 2020-05-31 | Outpatient (CLI) | payer MEDICARE, OTHER | END | disposition home or self-care (01) | LOC: LAB 18:18 | DX: L08.9 Local infection of the skin and subcutaneous tissue, unspecified (principal) | CPT/HCPCS: 87070; 87075; 87077; 87186; 87205 ==

== ENCOUNTER 2020-06-06 00:16 | Day surgery (SDC) | payer MEDICARE, OTHER | END 2020-06-06 23:11 | disposition home or self-care (01) | LOC: WOUND 00:16 | DX: S81.801A Unspecified open wound, right lower leg, initial encounter (principal); S81.802A Unspecified open wound, left lower leg, initial encounter; I87.2 Venous insufficiency (chronic) (peripheral); I73.9 Peripheral vascular disease, unspecified; W19.XXXA Unspecified fall, initial encounter; Y92.481 Parking lot as the place of occurrence of the external cause; I11.0 Hypertensive heart disease with heart failure; I50.9 Heart failure, unspecified; Z79.899 Other long term (current) drug therapy; Z88.2 Allergy status to sulfonamides; Z87.891 Personal history of nicotine dependence ==

== ENCOUNTER 2020-06-11 00:13 | Day surgery (SDC) | payer MEDICARE, OTHER | END 2020-06-11 23:07 | disposition home or self-care (01) | LOC: WOUND 00:13 | DX: S81.801A Unspecified open wound, right lower leg, initial encounter (principal); S81.802A Unspecified open wound, left lower leg, initial encounter; I87.2 Venous insufficiency (chronic) (peripheral); I73.9 Peripheral vascular disease, unspecified; Z79.82 Long term (current) use of aspirin; Z79.02 Long term (current) use of antithrombotics/antiplatelets; Z88.2 Allergy status to sulfonamides; Z88.8 Allergy status to other drugs, medicaments and biological substances; X58.XXXA Exposure to other specified factors, initial encounter | CPT/HCPCS: G0463 ==

== ENCOUNTER 2020-06-18 00:42 | Day surgery (SDC) | payer MEDICARE, OTHER | END 2020-06-18 23:00 | disposition home or self-care (01) | LOC: WOUND 00:42 | DX: S81.802A Unspecified open wound, left lower leg, initial encounter (principal); S81.801A Unspecified open wound, right lower leg, initial encounter; I96 Gangrene, not elsewhere classified; L08.9 Local infection of the skin and subcutaneous tissue, unspecified; I87.2 Venous insufficiency (chronic) (peripheral); I11.0 Hypertensive heart disease with heart failure; I50.9 Heart failure, unspecified; I25.10 Atherosclerotic heart disease of native coronary artery without angina pectoris; Z88.2 Allergy status to sulfonamides; Z88.5 Allergy status to narcotic agent; Z79.82 Long term (current) use of aspirin; Z79.899 Other long term (current) drug therapy; Z79.02 Long term (current) use of antithrombotics/antiplatelets; W19.XXXA Unspecified fall, initial encounter; Y92.481 Parking lot as the place of occurrence of the external cause ==

== ENCOUNTER 2020-06-25 00:31 | Day surgery (SDC) | payer MEDICARE, OTHER | END 2020-06-25 22:54 | disposition home or self-care (01) | LOC: WOUND 00:31 | DX: S81.802A Unspecified open wound, left lower leg, initial encounter (principal); S81.801A Unspecified open wound, right lower leg, initial encounter; L08.9 Local infection of the skin and subcutaneous tissue, unspecified; I96 Gangrene, not elsewhere classified; I87.2 Venous insufficiency (chronic) (peripheral); R77.0 Abnormality of albumin; I11.0 Hypertensive heart disease with heart failure; I50.9 Heart failure, unspecified; I25.10 Atherosclerotic heart disease of native coronary artery without angina pectoris; Z88.2 Allergy status to sulfonamides; Z79.82 Long term (current) use of aspirin; Z79.02 Long term (current) use of antithrombotics/antiplatelets; Z79.899 Other long term (current) drug therapy; X58.XXXA Exposure to other specified factors, initial encounter ==

== ENCOUNTER 2020-07-02 00:38 | Day surgery (SDC) | payer MEDICARE, OTHER | END 2020-07-02 22:47 | disposition home or self-care (01) | LOC: WOUND 00:38 | DX: S81.802D Unspecified open wound, left lower leg, subsequent encounter (principal); S81.801D Unspecified open wound, right lower leg, subsequent encounter; I87.2 Venous insufficiency (chronic) (peripheral); I73.9 Peripheral vascular disease, unspecified; I11.0 Hypertensive heart disease with heart failure; I50.9 Heart failure, unspecified; I25.10 Atherosclerotic heart disease of native coronary artery without angina pectoris; W19.XXXD Unspecified fall, subsequent encounter | CPT/HCPCS: G0463 ==

== ENCOUNTER 2020-07-09 00:42 | Day surgery (SDC) | payer MEDICARE, OTHER | END 2020-07-09 22:46 | disposition home or self-care (01) | LOC: WOUND 00:42 | DX: S81.801D Unspecified open wound, right lower leg, subsequent encounter (principal); S81.802D Unspecified open wound, left lower leg, subsequent encounter; I87.2 Venous insufficiency (chronic) (peripheral); I73.9 Peripheral vascular disease, unspecified; I11.0 Hypertensive heart disease with heart failure; I50.9 Heart failure, unspecified; I25.119 Atherosclerotic heart disease of native coronary artery with unspecified angina pectoris; W19.XXXD Unspecified fall, subsequent encounter | CPT/HCPCS: A9270 ==

== ENCOUNTER 2020-07-16 00:30 | Day surgery (SDC) | payer MEDICARE, OTHER | END 2020-07-16 23:11 | disposition home or self-care (01) | LOC: WOUND 00:30 | DX: S81.801D Unspecified open wound, right lower leg, subsequent encounter (principal); S81.802D Unspecified open wound, left lower leg, subsequent encounter; X58.XXXD Exposure to other specified factors, subsequent encounter; I87.2 Venous insufficiency (chronic) (peripheral); I73.9 Peripheral vascular disease, unspecified; Z88.2 Allergy status to sulfonamides; Z79.82 Long term (current) use of aspirin; Z79.899 Other long term (current) drug therapy; Z79.02 Long term (current) use of antithrombotics/antiplatelets | CPT/HCPCS: A9270 ==

== ENCOUNTER 2020-07-22 00:36 | Day surgery (SDC) | payer MEDICARE, OTHER | END 2020-07-22 22:36 | disposition home or self-care (01) | LOC: WOUND 00:36 | DX: S81.801D Unspecified open wound, right lower leg, subsequent encounter (principal); S81.802D Unspecified open wound, left lower leg, subsequent encounter; I87.2 Venous insufficiency (chronic) (peripheral); I73.9 Peripheral vascular disease, unspecified; I10 Essential (primary) hypertension; I25.119 Atherosclerotic heart disease of native coronary artery with unspecified angina pectoris; W19.XXXD Unspecified fall, subsequent encounter; Y92.481 Parking lot as the place of occurrence of the external cause | CPT/HCPCS: A9270 ==

== ENCOUNTER 2020-07-30 00:18 | Day surgery (SDC) | payer MEDICARE, OTHER | END 2020-07-30 23:45 | LOC: WOUND 00:18 | DX: S81.801D Unspecified open wound, right lower leg, subsequent encounter (principal); S81.802D Unspecified open wound, left lower leg, subsequent encounter; I87.2 Venous insufficiency (chronic) (peripheral); I73.9 Peripheral vascular disease, unspecified; I11.0 Hypertensive heart disease with heart failure; I50.9 Heart failure, unspecified; I25.10 Atherosclerotic heart disease of native coronary artery without angina pectoris; W19.XXXD Unspecified fall, subsequent encounter | CPT/HCPCS: A9270 ==

== ENCOUNTER 2020-08-02 02:15 | Day surgery (SDC) | payer MEDICARE, OTHER | END 2020-08-02 23:45 | disposition home or self-care (01) | LOC: WOUND 02:15 | DX: S81.801D Unspecified open wound, right lower leg, subsequent encounter (principal); S81.802D Unspecified open wound, left lower leg, subsequent encounter; I87.2 Venous insufficiency (chronic) (peripheral); I73.9 Peripheral vascular disease, unspecified ==

== ENCOUNTER 2020-08-05 00:38 | Day surgery (SDC) | payer MEDICARE, OTHER | END 2020-08-05 23:15 | disposition home or self-care (01) | LOC: WOUND 00:38 | DX: S81.801D Unspecified open wound, right lower leg, subsequent encounter (principal); S81.802D Unspecified open wound, left lower leg, subsequent encounter; I87.2 Venous insufficiency (chronic) (peripheral); I73.9 Peripheral vascular disease, unspecified ==

== ENCOUNTER 2020-08-07 00:18 | Day surgery (SDC) | payer MEDICARE, OTHER | END 2020-08-07 23:05 | disposition home or self-care (01) | LOC: WOUND 00:18 | DX: S81.801A Unspecified open wound, right lower leg, initial encounter (principal); S81.802A Unspecified open wound, left lower leg, initial encounter; I87.2 Venous insufficiency (chronic) (peripheral); I73.9 Peripheral vascular disease, unspecified; I25.119 Atherosclerotic heart disease of native coronary artery with unspecified angina pectoris; I11.0 Hypertensive heart disease with heart failure; I50.9 Heart failure, unspecified; W19.XXXA Unspecified fall, initial encounter; Y92.481 Parking lot as the place of occurrence of the external cause | CPT/HCPCS: A9270 ==

== ENCOUNTER 2020-08-14 01:31 | Day surgery (SDC) | payer MEDICARE, OTHER | END 2020-08-14 23:00 | disposition home or self-care (01) | LOC: WOUND 01:31 | DX: S81.802A Unspecified open wound, left lower leg, initial encounter (principal); S81.801A Unspecified open wound, right lower leg, initial encounter; I87.2 Venous insufficiency (chronic) (peripheral); I73.9 Peripheral vascular disease, unspecified; I25.119 Atherosclerotic heart disease of native coronary artery with unspecified angina pectoris; I11.0 Hypertensive heart disease with heart failure; I50.9 Heart failure, unspecified; W19.XXXA Unspecified fall, initial encounter; Y92.481 Parking lot as the place of occurrence of the external cause | CPT/HCPCS: A9270 ==

== ENCOUNTER 2020-08-21 00:27 | Day surgery (SDC) | payer MEDICARE, OTHER | END 2020-08-21 22:47 | disposition home or self-care (01) | LOC: WOUND 00:27 | DX: S81.801A Unspecified open wound, right lower leg, initial encounter (principal); S81.802A Unspecified open wound, left lower leg, initial encounter; W18.30XA Fall on same level, unspecified, initial encounter; I25.119 Atherosclerotic heart disease of native coronary artery with unspecified angina pectoris; I11.0 Hypertensive heart disease with heart failure; I50.9 Heart failure, unspecified; Y92.481 Parking lot as the place of occurrence of the external cause | CPT/HCPCS: A9270 ==

== ENCOUNTER 2020-08-28 00:07 | Day surgery (SDC) | payer MEDICARE, OTHER | END 2020-08-28 22:39 | disposition home or self-care (01) | LOC: WOUND 00:07 | DX: S81.801A Unspecified open wound, right lower leg, initial encounter (principal); S81.802A Unspecified open wound, left lower leg, initial encounter; I87.2 Venous insufficiency (chronic) (peripheral); I73.9 Peripheral vascular disease, unspecified; I11.0 Hypertensive heart disease with heart failure; I50.9 Heart failure, unspecified; I25.10 Atherosclerotic heart disease of native coronary artery without angina pectoris; X58.XXXA Exposure to other specified factors, initial encounter | CPT/HCPCS: 87071; 87075; 87077; 87147; 87186; 87205; A9270 ==

== ENCOUNTER 2020-09-02 01:35 | Day surgery (SDC) | payer MEDICARE, OTHER | END 2020-09-02 23:06 | disposition home or self-care (01) | LOC: WOUND 01:35 | DX: S81.801A Unspecified open wound, right lower leg, initial encounter (principal); S81.802A Unspecified open wound, left lower leg, initial encounter; I87.2 Venous insufficiency (chronic) (peripheral); I73.9 Peripheral vascular disease, unspecified; I11.0 Hypertensive heart disease with heart failure; I50.9 Heart failure, unspecified; I25.119 Atherosclerotic heart disease of native coronary artery with unspecified angina pectoris; W19.XXXA Unspecified fall, initial encounter; Y92.481 Parking lot as the place of occurrence of the external cause | CPT/HCPCS: A9270 ==

== ENCOUNTER 2020-09-11 00:41 | Day surgery (SDC) | payer MEDICARE, OTHER | END 2020-09-11 22:41 | disposition home or self-care (01) | LOC: WOUND 00:41 | DX: S81.801A Unspecified open wound, right lower leg, initial encounter (principal); S81.802A Unspecified open wound, left lower leg, initial encounter; I87.2 Venous insufficiency (chronic) (peripheral); I73.9 Peripheral vascular disease, unspecified; I11.0 Hypertensive heart disease with heart failure; I50.9 Heart failure, unspecified; I25.119 Atherosclerotic heart disease of native coronary artery with unspecified angina pectoris; W19.XXXA Unspecified fall, initial encounter | CPT/HCPCS: A9270 ==

== ENCOUNTER 2020-09-18 00:20 | Day surgery (SDC) | payer MEDICARE, OTHER | END 2020-09-18 22:37 | disposition home or self-care (01) | LOC: WOUND 00:20 | DX: S81.801A Unspecified open wound, right lower leg, initial encounter (principal); S81.802A Unspecified open wound, left lower leg, initial encounter; I87.2 Venous insufficiency (chronic) (peripheral); I73.9 Peripheral vascular disease, unspecified; I11.0 Hypertensive heart disease with heart failure; I50.9 Heart failure, unspecified; I25.10 Atherosclerotic heart disease of native coronary artery without angina pectoris; X58.XXXA Exposure to other specified factors, initial encounter | CPT/HCPCS: A9270 ==

== ENCOUNTER 2020-09-23 02:38 | Day surgery (SDC) | payer MEDICARE, OTHER | END 2020-09-23 23:27 | disposition home or self-care (01) | LOC: WOUND 02:38 | DX: S81.801D Unspecified open wound, right lower leg, subsequent encounter (principal); S81.802D Unspecified open wound, left lower leg, subsequent encounter; X58.XXXD Exposure to other specified factors, subsequent encounter; I87.2 Venous insufficiency (chronic) (peripheral); I73.9 Peripheral vascular disease, unspecified ==

== ENCOUNTER 2020-09-25 01:20 | Day surgery (SDC) | payer MEDICARE, OTHER | END 2020-09-25 22:58 | disposition home or self-care (01) | LOC: WOUND 01:20 | DX: S81.801D Unspecified open wound, right lower leg, subsequent encounter (principal); S81.802D Unspecified open wound, left lower leg, subsequent encounter; X58.XXXD Exposure to other specified factors, subsequent encounter; I87.2 Venous insufficiency (chronic) (peripheral); I73.9 Peripheral vascular disease, unspecified | CPT/HCPCS: A9270 ==

== ENCOUNTER 2020-09-30 12:37 | Day surgery (SDC) | payer MEDICARE, OTHER | END 2020-09-30 22:49 | disposition home or self-care (01) | LOC: WOUND 12:37 | DX: S81.801D Unspecified open wound, right lower leg, subsequent encounter (principal); S81.802D Unspecified open wound, left lower leg, subsequent encounter; X58.XXXD Exposure to other specified factors, subsequent encounter; I87.2 Venous insufficiency (chronic) (peripheral); I73.9 Peripheral vascular disease, unspecified | CPT/HCPCS: G0463 ==

== ENCOUNTER 2020-10-02 00:21 | Day surgery (SDC) | payer MEDICARE, OTHER | END 2020-10-02 22:42 | disposition home or self-care (01) | LOC: WOUND 00:21 | DX: S81.801A Unspecified open wound, right lower leg, initial encounter (principal); S81.802A Unspecified open wound, left lower leg, initial encounter; R60.0 Localized edema; I87.2 Venous insufficiency (chronic) (peripheral); I73.9 Peripheral vascular disease, unspecified; I11.0 Hypertensive heart disease with heart failure; I50.9 Heart failure, unspecified; I25.10 Atherosclerotic heart disease of native coronary artery without angina pectoris; X58.XXXA Exposure to other specified factors, initial encounter | CPT/HCPCS: A9270 ==

== ENCOUNTER 2020-10-09 00:05 | Day surgery (SDC) | payer MEDICARE, OTHER | END 2020-10-09 22:45 | disposition home or self-care (01) | LOC: WOUND 00:05 | DX: S81.801D Unspecified open wound, right lower leg, subsequent encounter (principal); S81.802D Unspecified open wound, left lower leg, subsequent encounter; X58.XXXD Exposure to other specified factors, subsequent encounter; I87.2 Venous insufficiency (chronic) (peripheral); I73.9 Peripheral vascular disease, unspecified | CPT/HCPCS: A9270 ==

== ENCOUNTER 2020-10-23 01:12 | Day surgery (SDC) | payer MEDICARE, OTHER | END 2020-10-23 23:15 | disposition home or self-care (01) | LOC: WOUND 01:12 | DX: L97.812 Non-pressure chronic ulcer of other part of right lower leg with fat layer exposed (principal); S81.801D Unspecified open wound, right lower leg, subsequent encounter; S81.802D Unspecified open wound, left lower leg, subsequent encounter; X58.XXXD Exposure to other specified factors, subsequent encounter; I87.2 Venous insufficiency (chronic) (peripheral); I73.9 Peripheral vascular disease, unspecified | CPT/HCPCS: A9270 ==

== ENCOUNTER 2020-11-13 03:40 | Day surgery (SDC) | payer MEDICARE, OTHER | END 2020-11-13 22:42 | disposition home or self-care (01) | LOC: WOUND 03:40 | DX: S81.801D Unspecified open wound, right lower leg, subsequent encounter (principal); S81.802D Unspecified open wound, left lower leg, subsequent encounter; X58.XXXD Exposure to other specified factors, subsequent encounter; I87.2 Venous insufficiency (chronic) (peripheral); I73.9 Peripheral vascular disease, unspecified | CPT/HCPCS: A9270; G0463 ==

== ENCOUNTER 2020-11-20 03:21 | Day surgery (SDC) | payer MEDICARE, OTHER | END 2020-11-20 23:19 | disposition home or self-care (01) | LOC: WOUND 03:21 | DX: L97.822 Non-pressure chronic ulcer of other part of left lower leg with fat layer exposed (principal); S81.801D Unspecified open wound, right lower leg, subsequent encounter; S81.802D Unspecified open wound, left lower leg, subsequent encounter; X58.XXXD Exposure to other specified factors, subsequent encounter; I87.2 Venous insufficiency (chronic) (peripheral); I73.9 Peripheral vascular disease, unspecified | CPT/HCPCS: A9270 ==

== ENCOUNTER 2020-12-04 02:19 | Day surgery (SDC) | payer MEDICARE, OTHER | END 2020-12-04 23:49 | disposition home or self-care (01) | LOC: WOUND 02:19 | DX: L97.819 Non-pressure chronic ulcer of other part of right lower leg with unspecified severity (principal); S81.801D Unspecified open wound, right lower leg, subsequent encounter; X58.XXXD Exposure to other specified factors, subsequent encounter; I87.2 Venous insufficiency (chronic) (peripheral); I73.9 Peripheral vascular disease, unspecified; I11.0 Hypertensive heart disease with heart failure; I50.9 Heart failure, unspecified; I25.10 Atherosclerotic heart disease of native coronary artery without angina pectoris | CPT/HCPCS: A9270; G0463 ==

== ENCOUNTER 2021-03-31 08:25 | Day surgery (SDC) | payer MEDICARE, OTHER | END 2021-03-31 23:00 | disposition home or self-care (01) | LOC: WOUND 08:25 | DX: S81.801D Unspecified open wound, right lower leg, subsequent encounter (principal); X58.XXXD Exposure to other specified factors, subsequent encounter; I87.2 Venous insufficiency (chronic) (peripheral); I73.9 Peripheral vascular disease, unspecified; I11.0 Hypertensive heart disease with heart failure; I50.9 Heart failure, unspecified; I25.10 Atherosclerotic heart disease of native coronary artery without angina pectoris; Z88.2 Allergy status to sulfonamides; Z87.891 Personal history of nicotine dependence | CPT/HCPCS: A9270; G0463 ==

== ENCOUNTER 2021-04-08 01:18 | Day surgery (SDC) | payer MEDICARE, OTHER | END 2021-04-08 23:03 | disposition home or self-care (01) | LOC: WOUND 01:18 | DX: S81.801D Unspecified open wound, right lower leg, subsequent encounter (principal); X58.XXXD Exposure to other specified factors, subsequent encounter; I87.2 Venous insufficiency (chronic) (peripheral); I73.9 Peripheral vascular disease, unspecified; I11.0 Hypertensive heart disease with heart failure; I50.9 Heart failure, unspecified; I25.10 Atherosclerotic heart disease of native coronary artery without angina pectoris; Z88.2 Allergy status to sulfonamides | CPT/HCPCS: G0463 ==

== ENCOUNTER 2021-05-02 17:51 | Inpatient (IN) | payer MEDICARE, OTHER ==
[~2021-05-02] VITALS: Ht 157.5 cm; Wt 92.5 kg
[2021-05-02 18:24] LABS: BASOPHILS ABSOLUTE AUTO 0.05 K/mm3 (0.00-0.23); BASOPHILS PERCENT AUTO 0 % (0-2); EOSINOPHILS ABSOLUTE AUTO 0.07 K/mm3 (0.00-0.68); EOSINOPHILS PERCENT AUTO 1 % (0-6); Hematocrit 44.8 % (33.0-51.0); Hemoglobin 15.1 g/dL (11.5-16.0); IMMATURE GRAN ABSOLUTE AUTO 0.04 K/mm3 (0.00-0.10); IMMATURE GRAN PERCENT AUTO 0 % (0-1); LYMPHOCYTES ABSOLUTE AUTO 1.43 K/mm3 (0.84-5.20); LYMPHOCYTES PERCENT AUTO 12 % (21-46); MONOCYTES ABSOLUTE AUTO 0.58 K/mm3 (0.16-1.47); MONOCYTES PERCENT AUTO 5 % (4-13); Mean Corpuscular HGB 31.5 pg (26.0-34.0); Mean Corpuscular HGB Conc 33.7 g/dL (31.5-36.5); Mean Corpuscular Volume 93 fL (80-100); Mean Platelet Volume 10.2 fL (9.1-12.4); NEUTROPHILS ABSOLUTE AUTO 9.93 K/mm3 (1.96-9.15); NEUTROPHILS PERCENT AUTO 82 % (41-73); Platelet Count 294 K/mm3 (150-400); RDW Coefficient Variation 12.1 % (11.7-14.2); RDW Standard Deviation 42.1 fL (35.1-46.3)
[2021-05-02] MEDS ORDERED: VENL75ER PO ×2 (18:44)
[2021-05-02] MEDS ORDERED: PLAVIX75 MG PO ×2 (18:44)
[2021-05-02] MEDS ORDERED: ATOR40TA PO ×2 (18:44)
[2021-05-02] MEDS ORDERED: MIRT15 PO ×2 (18:44)
[2021-05-02] MEDS ORDERED: LOSA50 PO ×2 (18:45)
[2021-05-02] MEDS ORDERED: Aspir 8181 MG PO ×2 (18:45)
[2021-05-02] MEDS ORDERED: METO50 PO ×2 (18:45)
[2021-05-02] MEDS ORDERED: CYAN500 PO ×2 (18:46)
[2021-05-02 18:49] LABS: Alanine Aminotransfer (ALT/SGP 31 U/L (12-78); Albumin, Blood 3.6 g/dL (3.4-5.0); Albumin/Globulin Ratio 0.8 (0.8-1.8); Alk Phos 133 U/L (50-136); Anion Gap 6 mmol/L (6-16); Aspartate Aminotrans (AST/SGOT 26 U/L (12-37); Bilirubin, Total 0.2 mg/dL (0.1-1.0); Blood Urea Nitrogen 20 mg/dL (8-24); Bun/Creatinine Ratio 30.7 (12.0-20.0); CO2, Blood 26 mmol/L (21-32); Calcium, Blood 9.5 mg/dL (8.5-10.1); Chloride, Blood 104 mmol/L (98-108); Creatinine, Blood 0.65 mg/dL (0.40-1.00); Globulin, Blood 4.7 g/dL (2.2-4.0); Glomerular Filtration Rate >60 (60-); Glucose, Blood 144 mg/dL (70-99); Potassium, Blood 3.8 mmol/L (3.5-5.5); Sodium, Blood 136 mmol/L (136-145); Total Protein, Blood 8.3 g/dL (6.4-8.2)
[2021-05-02 20:23] LABS: CHOL/HDL RATIO 2.3; Cholesterol 150 mg/dL (50-200); HDL Cholesterol 65 mg/dL (>39); Low Density Lipoprotein Chol 64 mg/dL (0-110); Triglycerides 104 mg/dL (30-160); Very Low Density Lipoprot Chol 20 mg/dL (6-32)
[2021-05-02 21:15] LABS: Anti-Xa UFH, PHA Monitoring <0.10 IU/mL
[2021-05-02 22:01] LABS: Prothrombin Time Results 10.5 Sec (9.7-11.5)
[2021-05-03 04:28] LABS: BASOPHILS ABSOLUTE AUTO 0.03 K/mm3 (0.00-0.23); BASOPHILS PERCENT AUTO 0 % (0-2); EOSINOPHILS ABSOLUTE AUTO 0.08 K/mm3 (0.00-0.68); EOSINOPHILS PERCENT AUTO 1 % (0-6); Hematocrit 40.5 % (33.0-51.0); Hemoglobin 13.8 g/dL (11.5-16.0); IMMATURE GRAN ABSOLUTE AUTO 0.03 K/mm3 (0.00-0.10); IMMATURE GRAN PERCENT AUTO 0 % (0-1); LYMPHOCYTES ABSOLUTE AUTO 1.92 K/mm3 (0.84-5.20); LYMPHOCYTES PERCENT AUTO 25 % (21-46); MONOCYTES ABSOLUTE AUTO 0.51 K/mm3 (0.16-1.47); MONOCYTES PERCENT AUTO 7 % (4-13); Mean Corpuscular HGB 31.6 pg (26.0-34.0); Mean Corpuscular HGB Conc 34.1 g/dL (31.5-36.5); Mean Corpuscular Volume 93 fL (80-100); Mean Platelet Volume 10.1 fL (9.1-12.4); NEUTROPHILS ABSOLUTE AUTO 4.99 K/mm3 (1.96-9.15); NEUTROPHILS PERCENT AUTO 66 % (41-73); Platelet Count 250 K/mm3 (150-400); RDW Coefficient Variation 12.2 % (11.7-14.2); RDW Standard Deviation 42.1 fL (35.1-46.3); Red Blood Cell Count 4.37 M/mm3 (3.80-5.20); White Blood Cell Count 7.56 K/mm3 (4.00-11.30)
[2021-05-03 05:02] LABS: Anion Gap 6 mmol/L (6-16); Blood Urea Nitrogen 18 mg/dL (8-24); CO2, Blood 27 mmol/L (21-32); Calcium, Blood 8.7 mg/dL (8.5-10.1); Chloride, Blood 108 mmol/L (98-108); Creatinine, Blood 0.56 mg/dL (0.40-1.00); Glomerular Filtration Rate >60 (60-); Glucose, Blood 110 mg/dL (70-99); Potassium, Blood 3.7 mmol/L (3.5-5.5); Sodium, Blood 141 mmol/L (136-145)
--- NOTE | 2021-05-03 06:45 | NUR ---
SHIFT SUMMARY PT IS ALERT AND ORIENTED X4. PT DENIES CHEST PAIN BUT REPORTS SOME SOB. VITAL SIGNS ARE STABLE AND IS ON 2L NC WITH SATS ABOVE 92%. THERE HAVE BEEN NO ACUTE CHANGES. TROP LABS HAVE COME BACK ELEVATED WITH NO CHANGES TO PT. CONSULT FOR CLINICAL ABSTRACTOR CALLED INTO ANSWERING SERVICE. PT IS ABLE TO GET UP 1 ASSIST TO THE BSC. PT USES CALL LIGHT APPROPRIETLY. CALL LIGHT IS WITHIN REACH.
--- NOTE | 2021-05-03 08:50 | NUR ---
PATIENT ALERT AND ORIENTED X4. DENIES N/T. ABLE TO MOVE ALL EXTREMITIES. SOME OVERALL WEAKNESS. PUPILS EQUAL AND REACTIVE. ON 2L O2 VIA NC SATING MID 90'S. DENIES SOB. TELE SHOWING SINUS WITH HR 80'S. DENIES CHEST PAIN/PRESSURE SINCE EPISODE THAT BROUGHT PATIENT INTO HOSPITAL. WHEN DESCRIBING PREVIOUS CHEST PAIN, PATIENT POINT TO UPPER ABDOMINAL REGION, STATES SHE FELT A DULL ACHE AND HER LEFT ARM GO NUMB. DENIES THOSE FEELING NOW AND OVERALL PAIN. USING BSC WITH 1 PERSON ASSIST. IN THE RECLINER AT THIS TIME. VITAL SIGNS STABLE. PLAN FOR CARDIOLOGY CONSULT THIS AM. PATIENT REMAINS NPO FOR CONSULT. ABLE TO TAKE MEDS WITH WATER. CALL LIGHT IN REACH.
--- NOTE | 2021-05-03 12:03 | NUR ---
Echocardiogram completed.
--- NOTE | 2021-05-03 12:48 | NUR ---
PATIENT HAD EPISODE OF FEELING FLUSHED AND NAUSEA. VITAL SIGNS STABLE. CALL PLACED TO DR. JEFFRIES. NEW ORDERS FOR JANE. DR. TOMAS IN TO SEE PATIENT POSSIBLE ANGIO TODAY OR TOMORROW. WAITING FOR CT PE STUDY TO BE DONE.
[2021-05-03 14:53] LABS: SARS-Cov-2 (COVID-19) PCR, MMC NEGATIVE (NEGATIVE)
--- NOTE | 2021-05-03 15:30 | NUR ---
patitent taken to heart center at this time for angiogram.
--- NOTE | 2021-05-03 18:29 | NUR ---
SHIFT SUMMARY: PATIENT RETURNED FROM SENIOR CLINICAL DATA COORDINATOR AT 1710 WITH RIGHT RADIAL SITE AND 2 STENTS PLACED. 1L NS INFUSING AT 100 ML/HR. POST ANGIO EKG DONE AND ANOTHER TO BE DONE IN AM. POST ANGIO VITAL SIGNS IN PROGRESS AND STABLE THUS FAR. RIGHT RADIAL SITE WNL, NO SIGNS OF BLEEDING OR HEMATOMA. REMAINS SOFT AND NONTENDER. STRONG RADIAL PULSE WITH GOOD PLETH. 2 ML REMOVED AT 1815 DUE TO PATIENT FEELING NUMBNESS AND TINGLING IN FINGER TIPS. TELE SHOWING SINUS RHYTHM WITH HR 70'S. DENIES CHEST PAIN/PRESSURE. REMAINS ON ROOM AIR. ABLE TO EAT SMALL AMOUNT OF DINNER. DRINKING WATER. TAKES PILLS WHOLE. CALL LIGHT IN REACH. WILL CONTINUE TO MONITOR.
--- NOTE | 2021-05-03 18:33 | NUR ---
PLAN FOR CT PE STUDY TOMORROW AM, DUE TO WANTING TO LIMIT CONTRAST EXPOSURE WITHIN ONE DAY.
--- NOTE | 2021-05-04 06:14 | NUR ---
SHIFT SUMMARY PT IS ALERT AND ORIENTEDX4. PT HAS HAD NO ACUTE CHANGES T/O THE NIGHT. TR BAND HAS BEEN REMOVED WITH OPSITE IN PLACE. PT DENIES CHEST PAIN/PRESSURE. VITALS ARE STABLE. WAS PUT ON 1L NC WHEN SLEEPING DUE TO LOW 90'S SATS. PT IS ABLE TO GET UP TO THE BSC WITH 1 ASSIST AND NO COMPLCATIONS. CALL LIGHT IS WITHIN REACH.
[2021-05-04 08:56] LABS: BASOPHILS ABSOLUTE AUTO 0.03 K/mm3 (0.00-0.23); BASOPHILS PERCENT AUTO 0 % (0-2); EOSINOPHILS ABSOLUTE AUTO 0.09 K/mm3 (0.00-0.68); EOSINOPHILS PERCENT AUTO 1 % (0-6); Hematocrit 37.2 % (33.0-51.0); Hemoglobin 12.5 g/dL (11.5-16.0); IMMATURE GRAN ABSOLUTE AUTO 0.03 K/mm3 (0.00-0.10); IMMATURE GRAN PERCENT AUTO 0 % (0-1); LYMPHOCYTES ABSOLUTE AUTO 1.48 K/mm3 (0.84-5.20); LYMPHOCYTES PERCENT AUTO 18 % (21-46); MONOCYTES ABSOLUTE AUTO 0.53 K/mm3 (0.16-1.47); MONOCYTES PERCENT AUTO 7 % (4-13); Mean Corpuscular HGB 31.6 pg (26.0-34.0); Mean Corpuscular HGB Conc 33.6 g/dL (31.5-36.5); Mean Corpuscular Volume 94 fL (80-100); Mean Platelet Volume 10.4 fL (9.1-12.4); NEUTROPHILS ABSOLUTE AUTO 5.97 K/mm3 (1.96-9.15); NEUTROPHILS PERCENT AUTO 73 % (41-73); Platelet Count 229 K/mm3 (150-400); RDW Coefficient Variation 12.5 % (11.7-14.2); RDW Standard Deviation 43.3 fL (35.1-46.3); Red Blood Cell Count 3.96 M/mm3 (3.80-5.20); White Blood Cell Count 8.13 K/mm3 (4.00-11.30)
[2021-05-04 09:08] LABS: Anion Gap 6 mmol/L (6-16); Blood Urea Nitrogen 15 mg/dL (8-24); Bun/Creatinine Ratio 27.9 (12.0-20.0); CO2, Blood 25 mmol/L (21-32); Calcium, Blood 8.8 mg/dL (8.5-10.1); Chloride, Blood 109 mmol/L (98-108); Creatinine, Blood 0.54 mg/dL (0.40-1.00); Glomerular Filtration Rate >60 (60-); Glucose, Blood 115 mg/dL (70-99); Potassium, Blood 3.6 mmol/L (3.5-5.5); Sodium, Blood 140 mmol/L (136-145)
== END 2021-05-04 11:15 | disposition home or self-care (01) | DRG 247 ==
LOC: ER 17:51 → PCU 20:03 → ENPENDDIS 05-04 10:03 → PCU 05-04 11:15
PROVIDERS: Emergency Medicine; Family Medicine; Internal Medicine Cardiovascular Disease; Physician Assistant; ADMIT Family Medicine
PROC: 3E02340 Introduction of Influenza Vaccine into Muscle, Percutaneous Approach (ICD-10-PCS; 2021-05-02)
PROC: 027035Z Dilation of Coronary Artery, One Artery with Two Drug-eluting Intraluminal Devices, Percutaneous Approach (ICD-10-PCS; principal; 2021-05-03)
PROC: B2111ZZ Fluoroscopy of Multiple Coronary Arteries using Low Osmolar Contrast (ICD-10-PCS; 2021-05-03)
PROC: 4A023N7 Measurement of Cardiac Sampling and Pressure, Left Heart, Percutaneous Approach (ICD-10-PCS; 2021-05-03)
DX: I21.4 Non-ST elevation (NSTEMI) myocardial infarction (principal); I10 Essential (primary) hypertension; I25.10 Atherosclerotic heart disease of native coronary artery without angina pectoris; Z86.718 Personal history of other venous thrombosis and embolism; Z88.2 Allergy status to sulfonamides; Z88.6 Allergy status to analgesic agent; Z20.822 Contact with and (suspected) exposure to COVID-19; Z96.651 Presence of right artificial knee joint; D72.828 Other elevated white blood cell count; Z23 Encounter for immunization; Z94.9 Transplanted organ and tissue status, unspecified; Z95.5 Presence of coronary angioplasty implant and graft; F41.9 Anxiety disorder, unspecified; F03.90 Unspecified dementia, unspecified severity, without behavioral disturbance, psychotic disturbance, mood disturbance, and anxiety; Z88.8 Allergy status to other drugs, medicaments and biological substances; Z79.82 Long term (current) use of aspirin; Z79.899 Other long term (current) drug therapy
CPT/HCPCS: 36415; 71046; 76937; 80048; 80053; 80061; 83690; 84484; 85025; 85347; 85379; 85520; 85610; 93005; 93010; 93454; 96374; 99152; 99153; 99285-25; A9270; C1725; C1751; C1769; C1874; C1887; C1894; C8929; C9600; J1644; J2250; J2405; J3010; J7030; J7040; J7050; Q9957; Q9967; U0004

== ENCOUNTER → 2021-05-05 | Outpatient (CLI) | payer MEDICARE, OTHER ==
[~2021-05-05] MED LIST changes: +Aspir 8181 MG PO; +PLAVIX75 MG PO; +VENL75ER PO
[2021-05-05 19:26] LABS: White Blood Cell Count 7.55 K/mm3 (4.00-11.30)
[2021-05-05 19:27] LABS: BASOPHILS ABSOLUTE AUTO 0.03 K/mm3 (0.00-0.23); BASOPHILS PERCENT AUTO 0 % (0-2); EOSINOPHILS ABSOLUTE AUTO 0.11 K/mm3 (0.00-0.68); EOSINOPHILS PERCENT AUTO 2 % (0-6); Hematocrit 34.8 % (33.0-51.0); Hemoglobin 11.7 g/dL (11.5-16.0); IMMATURE GRAN ABSOLUTE AUTO 0.04 K/mm3 (0.00-0.10); IMMATURE GRAN PERCENT AUTO 1 % (0-1); LYMPHOCYTES ABSOLUTE AUTO 1.94 K/mm3 (0.84-5.20); LYMPHOCYTES PERCENT AUTO 26 % (21-46); MONOCYTES ABSOLUTE AUTO 0.69 K/mm3 (0.16-1.47); MONOCYTES PERCENT AUTO 9 % (4-13); Mean Corpuscular HGB 31.6 pg (26.0-34.0); Mean Corpuscular HGB Conc 33.6 g/dL (31.5-36.5); Mean Corpuscular Volume 94 fL (80-100); Mean Platelet Volume 11.2 fL (9.1-12.4); NEUTROPHILS ABSOLUTE AUTO 4.74 K/mm3 (1.96-9.15); NEUTROPHILS PERCENT AUTO 63 % (41-73); Platelet Count 249 K/mm3 (150-400); RDW Coefficient Variation 12.7 % (11.7-14.2)
[2021-05-05 20:07] LABS: Anion Gap 7 mmol/L (6-16); Blood Urea Nitrogen 18 mg/dL (8-24); Bun/Creatinine Ratio 27.1 (12.0-20.0); CO2, Blood 26 mmol/L (21-32); Calcium, Blood 9.3 mg/dL (8.5-10.1); Chloride, Blood 107 mmol/L (98-108); Creatinine, Blood 0.66 mg/dL (0.40-1.00); Glomerular Filtration Rate >60 (60-); Glucose, Blood 113 mg/dL (70-99); Potassium, Blood 3.3 mmol/L (3.5-5.5); Sodium, Blood 140 mmol/L (136-145)
== END | disposition home or self-care (01) ==
LOC: LAB SHORT 17:44
PROVIDERS: Family Medicine
DX: R55 Syncope and collapse (principal)
CPT/HCPCS: 80048; 85025

== ENCOUNTER → 2023-02-24 | Outpatient (CLI) | payer MEDICARE, OTHER ==
[2023-02-24 19:32] LABS: BASOPHILS ABSOLUTE AUTO 0.04 K/mm3 (0.00-0.23); BASOPHILS PERCENT AUTO 1 % (0-2); EOSINOPHILS ABSOLUTE AUTO 0.21 K/mm3 (0.00-0.68); EOSINOPHILS PERCENT AUTO 3 % (0-6); Hematocrit 40.7 % (33.0-51.0); Hemoglobin 13.8 g/dL (11.5-16.0); IMMATURE GRAN ABSOLUTE AUTO 0.03 K/mm3 (0.00-0.10); IMMATURE GRAN PERCENT AUTO 1 % (0-1); LYMPHOCYTES ABSOLUTE AUTO 1.62 K/mm3 (0.84-5.20); LYMPHOCYTES PERCENT AUTO 26 % (21-46); MONOCYTES ABSOLUTE AUTO 0.51 K/mm3 (0.16-1.47); MONOCYTES PERCENT AUTO 8 % (4-13); Mean Corpuscular HGB 32.5 pg (26.0-34.0); Mean Corpuscular HGB Conc 33.9 g/dL (31.5-36.5); Mean Corpuscular Volume 96 fL (80-100); Mean Platelet Volume 10.5 fL (9.1-12.4); NEUTROPHILS ABSOLUTE AUTO 3.93 K/mm3 (1.96-9.15); NEUTROPHILS PERCENT AUTO 62 % (41-73); Platelet Count 289 K/mm3 (150-400); RDW Coefficient Variation 12.6 % (11.7-14.2); RDW Standard Deviation 44.1 fL (35.1-46.3); Red Blood Cell Count 4.25 M/mm3 (3.80-5.20); White Blood Cell Count 6.34 K/mm3 (4.00-11.30)
[2023-02-24 19:46] LABS: Albumin, Blood 3.4 g/dL (3.4-5.0); Albumin/Globulin Ratio 0.8 (0.8-1.8); Bilirubin, Total 0.3 mg/dL (0.1-1.0); Bun/Creatinine Ratio 27.8 (12.0-20.0); Calcium, Blood 9.2 mg/dL (8.5-10.1); Creatinine, Blood 0.54 mg/dL (0.40-1.00); Globulin, Blood 4.2 g/dL (2.2-4.0); Thyroid Stimulating Hormone 3.35 uIU/mL (0.360-4.800); Total Protein, Blood 7.6 g/dL (6.4-8.2)
== END ==
LOC: LAB 15:55 → LAB SHORT 15:55
PROVIDERS: Family Medicine
DX: R55 Syncope and collapse (principal)
CPT/HCPCS: 80053; 84443; 85025

== ENCOUNTER → 2024-07-21 | Outpatient (CLI) | payer MEDICARE, OTHER ==
[~2024-07-21] MED LIST changes: +ASCORBIC ACID500 MG PO; +ZINC15
[2024-07-21 19:05] LABS: BASOPHILS ABSOLUTE AUTO 0.03 K/mm3 (0.00-0.23); BASOPHILS PERCENT AUTO 0 % (0-2); EOSINOPHILS ABSOLUTE AUTO 0.19 K/mm3 (0.00-0.68); EOSINOPHILS PERCENT AUTO 3 % (0-6); Hematocrit 41.1 % (33.0-51.0); Hemoglobin 13.6 g/dL (11.5-16.0); IMMATURE GRAN ABSOLUTE AUTO 0.02 K/mm3 (0.00-0.10); IMMATURE GRAN PERCENT AUTO 0 % (0-1); LYMPHOCYTES ABSOLUTE AUTO 1.59 K/mm3 (0.84-5.20); LYMPHOCYTES PERCENT AUTO 24 % (21-46); MONOCYTES PERCENT AUTO 9 % (4-13); Mean Corpuscular HGB 31.9 pg (26.0-34.0); Mean Corpuscular HGB Conc 33.1 g/dL (31.5-36.5); Mean Corpuscular Volume 96 fL (80-100); Mean Platelet Volume 10.8 fL (9.1-12.4); NEUTROPHILS ABSOLUTE AUTO 4.32 K/mm3 (1.96-9.15); NEUTROPHILS PERCENT AUTO 64 % (41-73); Platelet Count 259 K/mm3 (150-400); RDW Coefficient Variation 12.8 % (11.7-14.2); RDW Standard Deviation 45.1 fL (35.1-46.3); Red Blood Cell Count 4.27 M/mm3 (3.80-5.20); White Blood Cell Count 6.75 K/mm3 (4.00-11.30)
[2024-07-21 21:21] LABS: Albumin, Blood 3.6 g/dL (3.4-5.0); Albumin/Globulin Ratio 0.9 (0.8-1.8); Bilirubin, Total 0.4 mg/dL (0.1-1.0); Bun/Creatinine Ratio 30.7 (12.0-20.0); Calcium, Blood 9.8 mg/dL (8.5-10.1); Creatinine, Blood 0.59 mg/dL (0.40-1.00); Globulin, Blood 4.2 g/dL (2.2-4.0); Potassium, Blood 3.5 mmol/L (3.5-5.5); Total Protein, Blood 7.8 g/dL (6.4-8.2)
== END | disposition home or self-care (01) ==
LOC: LAB SHORT 17:04 → LAB 17:04
PROVIDERS: Family Medicine
DX: Z13.1 Encounter for screening for diabetes mellitus (principal); N39.0 Urinary tract infection, site not specified; F03.90 Unspecified dementia, unspecified severity, without behavioral disturbance, psychotic disturbance, mood disturbance, and anxiety
CPT/HCPCS: 80053; 83036; 85025; 87086

== ENCOUNTER 2025-03-10 17:43 | Emergency (ER) | payer MEDICARE, OTHER ==
[~2025-03-10] VITALS: Ht 162.6 cm; Wt 99.8 kg
[2025-03-10 18:26] VITALS: BP 155/67
[2025-03-10 19:30] LABS: Influenza A, PCR NEGATIVE (NEGATIVE); Influenza B, PCR NEGATIVE (NEGATIVE); Resp Syncytial Virus, PCR NEGATIVE (NEGATIVE)
[2025-03-10 20:42] LABS: SARS-Cov-2 (COVID-19) PCR, MMC POSITIVE (NEGATIVE)
[2025-03-10 20:58] LABS: BASOPHILS ABSOLUTE AUTO 0.03 K/mm3 (0.00-0.23); BASOPHILS PERCENT AUTO 1 % (0-2); EOSINOPHILS ABSOLUTE AUTO 0.00 K/mm3 (0.00-0.68); EOSINOPHILS PERCENT AUTO 0 % (0-6); Hematocrit 44.5 % (33.0-51.0); Hemoglobin 14.6 g/dL (11.5-16.0); IMMATURE GRAN ABSOLUTE AUTO 0.02 K/mm3 (0.00-0.10); IMMATURE GRAN PERCENT AUTO 0 % (0-1); LYMPHOCYTES ABSOLUTE AUTO 1.28 K/mm3 (0.84-5.20); LYMPHOCYTES PERCENT AUTO 21 % (21-46); MONOCYTES ABSOLUTE AUTO 1.08 K/mm3 (0.16-1.47); MONOCYTES PERCENT AUTO 18 % (4-13); Mean Corpuscular HGB Conc 32.8 g/dL (31.5-36.5); Mean Corpuscular Volume 98 fL (80-100); NEUTROPHILS ABSOLUTE AUTO 3.65 K/mm3 (1.96-9.15); NEUTROPHILS PERCENT AUTO 60 % (41-73); NRBC ABSOLUTE 0.00 K/mm3 (0.00-0.02); NRBC Auto 0.0 /100 WBC (0.0-0.2); Platelet Count 206 K/mm3 (150-400); RDW Coefficient Variation 13.1 % (11.7-14.2); RDW Standard Deviation 46.6 fL (35.1-46.3)
[2025-03-10 21:21] LABS: Anion Gap 11.0 mmol/L (3-11); Blood Urea Nitrogen 21.0 mg/dL (8-24); CO2, Blood 21.0 mmol/L (21-32); Calcium, Blood 8.9 mg/dL (8.5-10.1); Chloride, Blood 105.0 mmol/L (98-108); Creatinine, Blood 0.64 mg/dL (0.40-1.00); Glucose, Blood 96.0 mg/dL (70-99); Potassium, Blood 3.5 mmol/L (3.5-5.5); Sodium, Blood 133.0 mmol/L (136-145)
== END 2025-03-10 22:26 | disposition home or self-care (01) ==
LOC: ER 17:43
PROVIDERS: Student in an Organized Health Care Education/Training Program
DX: U07.1 COVID-19 (principal); J06.9 Acute upper respiratory infection, unspecified; Z88.2 Allergy status to sulfonamides; Z79.899 Other long term (current) drug therapy; Z88.8 Allergy status to other drugs, medicaments and biological substances; Z79.82 Long term (current) use of aspirin; I10 Essential (primary) hypertension; E78.5 Hyperlipidemia, unspecified
CPT/HCPCS: 36415; 70450; 71046; 80048; 85025; 85651; 87637; 99284-25

== ENCOUNTER → 2025-03-26 | Outpatient (CLI) | payer MEDICARE, OTHER ==
[2025-03-26 11:43] LABS: Thyroid Stimulating Hormone 2.25 uIU/mL (0.360-4.800)
== END | disposition home or self-care (01) ==
LOC: LAB 10:01 → LAB SHORT 10:01
PROVIDERS: Student in an Organized Health Care Education/Training Program
DX: E03.8 Other specified hypothyroidism (principal); R73.03 Prediabetes
CPT/HCPCS: 83036; 84439; 84443; 84481